=== PATIENT | female | born 1975 | race Caucasian/White ===

== ENCOUNTER 2023-03-18 12:53 | Emergency (ER) | payer OTHER, SELFPAY ==
[2023-03-18 13:17] VITALS: BP 122/70; PULSE 74; RESP 16; TEMP 36.9; O2SAT 100
--- NOTE | 2023-03-18 13:23 | ED.URI ---
HPI - URI/Sore Throat General Chief Complaint: Upper Respiratory Infection Stated Complaint: not feeling well ,body aches Source: patient and RN notes reviewed Mode of arrival: ambulatory Limitations: no limitations History of Present Illness HPI Narrative: 47-year-old female presented for complaint of sinus pressure and body aches over the past few days. She denies, shortness of breath sore throat, nausea diarrhea, fever or chills. Taking DayQuil and Tylenol Cold meds. Endorses sick contacts with similar symptoms at work. MD elicited complaint: cough Review of Systems Review of Systems: CONSTITUTIONAL: Endorses malaise, denies chills, sweats, fever EYES: Denies visual changes, redness, or discharge ENT: Reports rhinorrhea, congestion, sinus pain, denies otalgia, sore throat CARDIOVASCULAR: Denies chest pain, palpitations, edema RESPIRATORY:Denies dyspnea GASTROINTESTINAL: Denies abdominal pain, nausea, vomiting, diarrhea SKIN: Denies rash or itching MUSCULOSKELETAL: Endorses myalgia NEUROLOGIC: Denies headache PMFSH Past Medical History Medical History (Updated 03/18/23 @ 13:35 by Matilde Vela APRN) ADHD Anxiety PTSD (post-traumatic stress disorder) Surgical History Surgical History (Updated 03/18/23 @ 13:35 by Matilde Vela APRN) History of cholecystectomy History of tubal ligation Exam Narrative: GENERAL: well-appearing, nontoxic no acute distress. HEAD: Normocephalic EYES: PERRLA, conjunctivae clear ENT: Mucous membranes moist. TMs pearly palomino with dull light reflex bilaterally; no tragal tenderness. Oropharynx erythematous without lesions or exudate, tonsils chronically enlarged 2+ no drooling, no hoarseness, no trismus, uvula midline. No tripod positioning, muffled voice, soft palate or pharyngeal wall bulging NECK: Supple. No lymphadenopathy CHEST: Clear to auscultation, breath sounds equal. No wheezing, rhonchi, rales, or stridor. No respiratory distress, speaks in full sentences. HEART: Regular rate and rhythm. No murmur heard. SKIN: Warm, dry, no rash. NEURO: Alert and oriented x3. PSYCH: Normal mood and affect Course Course Emergency Course: Patient is aware of diagnosis, understands and agrees to treatment plan. Anticipatory guidance given. Patient agrees to follow-up as directed and is aware of reasons to seek care at the emergency department. Portions of this record may have been created with voice recognition software Level of Care: Express Care Visit Vital Signs Vital signs: Vital Signs Temperature 98.4 F 03/18/23 13:17 Pulse Rate 74 03/18/23 13:17 Respiratory Rate 16 03/18/23 13:17 Blood Pressure 122/70 03/18/23 13:17 Pulse Oximetry 100 03/18/23 13:17 Oxygen Delivery Room Air 03/18/23 13:17 Temperature 98.4 F 03/18/23 13:17 Pulse Rate 74 03/18/23 13:17 Respiratory Rate 16 03/18/23 13:17 Blood Pressure 122/70 03/18/23 13:17 Pulse Oximetry 100 03/18/23 13:17 Oxygen Delivery Room Air 03/18/23 13:17 reviewed MDM - URI/Sore Throat MDM Narrative Medical decision making narrative: results of negative test reviewed with patient. Discussed physical exam findings. Advised supportive measures and signs/symptoms to go to the ER. Pt is appropriate for outpt treatment and f/u. Differential Diagnosis Differential diagnosis: Likely upper respiratory infection, sinusitis and viral infection Lab Data Labs: Strep Screen Presumptive Negative *(Reference Range: Negative)* Discharge Plan Discharge Clinical Impression: Viral infection Patient Disposition: Home, Self-Care Condition: Stable Instructions: Viral Syndrome (ED) Additional Instructions: flu test negative. Rapid strep swab was negative today You will be notified in a few days if the culture comes back positive for strep, and appropriate antibiotics will be called in at that time. if symptoms
== END 2023-03-18 13:34 | disposition home or self-care (01) ==
PROVIDERS: Emergency Provider Nurse Practitioner Family
DX: B34.9 Viral infection, unspecified (principal)
CPT/HCPCS: 87081; 87804; 87880; 99213; G0463

== ENCOUNTER 2023-04-16 08:15 | Emergency (ER) | payer OTHER, SELFPAY ==
--- NOTE | 2023-04-16 08:19 | ED.SKABFB ---
HPI - Skin/Abscess/Foreign Bdy General Chief complaint: Skin/Abscess/Foreign Body Stated complaint: Rash Time Seen by Provider: 04/16/23 08:32 Source: patient and RN notes reviewed Mode of arrival: ambulatory Limitations: no limitations History of Present Illness HPI narrative: 47-year-old female presents with concern for rash on bilateral forearms, legs. 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 She reports she has been using calamine lotion and Benadryl without relief. She denies swollen lips, swollen tongue, trouble breathing. MD complaint: rash Related Data Allergies Allergy/AdvReac Type Severity Reaction Status Date / Time pregabalin [From Lyrica] Allergy Severe Swelling Verified 04/16/23 08:27 of Lip/Tongue/Throat Review of Systems Review of Systems: CONSTITUTIONAL: Denies malaise, chills, sweats, or fever. EYES: Denies redness, or discharge. ENT: Denies rhinorrhea, congestion, swollen lips, swollen tongue CARDIOVASCULAR: Denies chest pain, palpitations, or edema. RESPIRATORY: Denies cough or dyspnea. GASTROINTESTINAL: Denies abdominal pain, nausea, vomiting SKIN: Reports itchy rash on bilateral forearms and lower legs MUSCULOSKELETAL: Denies joint pain or myalgia. NEUROLOGIC: Denies headache. All systems reviewed & are unremarkable except as noted in HPI and below PMFSH Past Medical History Medical History (Updated 04/16/23 @ 08:42 by Marita Brownlee NP) ADHD Anxiety PTSD (post-traumatic stress disorder) Surgical History Surgical History (Updated 03/18/23 @ 13:35 by Matilde Vela APRN) History of cholecystectomy History of tubal ligation Comments At time of signature, agree with nursing past medical, surgical, social and family history. There is no relevant family history pertinent to the presenting complaint Exam Narrative: GENERAL: Well-appearing, well-nourished, and in no acute distress. HEAD: Normocephalic, atraumatic. EYES: PERRLA, conjunctivae clear, and EOMI. ENT: Mucous membranes moist. Oropharynx without edema, erythema or lesions. NECK: Supple. No lymphadenopathy CHEST: Clear to auscultation. No respiratory distress. HEART: Regular rate and rhythm. SKIN: Warm, dry. Patches of erythematous papules and vesicles noted to bilateral forearms, scattered papules on bilateral lower legs NEURO: Alert and oriented x3. PSYCH: Normal mood and affect Course Course Emergency Course: Patient reports she cannot take steroid tablets because of her IBS, requests an injection. Patient is aware of diagnosis, understands and agrees to treatment plan. Anticipatory guidance given. Patient agrees to follow-up as directed and is aware of reasons to seek care at the emergency department. Portions of this record may have been created with voice recognition software Level of Care: Express Care Visit Vital Signs Vital signs: Reviewed. MDM - Skin/Abscess/Foreign Bdy MDM Narrative Medical decision making narrative: Does not appear at this time to be erythema multiforme, bullous, SJS, TEN; no evidence at this time to suggest RMSF, endocarditis or Lyme disease; patient looks well, nontoxic and is tolerating oral intake; no neurologic signs or symptoms; no headache, photophobia or neck pain; afebrile; appropriate for initial outpatient treatment; discussed the importance of follow-up, patient agrees; question, viral exanthema, contact dermatitis, allergic dermatitis, eczema, urticaria. No soft palate or uvula edema, no tongue, lip edema or other mucosal involvement, no respiratory compromise, no stridor, no wheezing, no wheezing, no history of syncope, no hypotension, no nausea, vomiting, or diarrhea. Instructed patient to go to nearest ER immediately for any worsening symptoms including but not limited to: fever, spreading rash, pain, sore throat, headache, dizziness, chest pain, trouble breathing, or any symptoms concerning to the patient. Critical Care Time Critical
[2023-04-16 08:22] VITALS: BP 107/79; PULSE 74; RESP 16; TEMP 36.9; O2SAT 99
[2023-04-16] MEDS: methylPREDNISolone SOD SUCC 125 MG VIAL IM (08:48)
== END 2023-04-16 09:02 | disposition home or self-care (01) ==
PROVIDERS: Emergency Provider Nurse Practitioner
DX: L25.9 Unspecified contact dermatitis, unspecified cause (principal)
CPT/HCPCS: 96372; 99213; G0463; J2930

== ENCOUNTER 2023-05-05 17:46 | Emergency (ER) | payer OTHER, SELFPAY ==
[2023-05-05 18:04] VITALS: BP 117/81; PULSE 85; RESP 16; TEMP 36.4; O2SAT 99
--- NOTE | 2023-05-05 18:14 | ED.FEMALEGU ---
HPI - Female Genitourinary General Chief complaint: Urogenital-Female Stated complaint: pain urinating,back pain Time Seen by Provider: 05/05/23 18:14 Source: patient, RN notes reviewed and old records reviewed Mode of arrival: ambulatory Limitations: no limitations History of Present Illness HPI Narrative: 47-year-old female presents to the [facility] with left lower back pain, pain with urination since yesterday. Has had nausea without vomiting. Denies abdominal pain. Denies fevers, chest pain. Related Data Home Medications Medication Instructions Recorded Confirmed dextroamphetamine-amphetamine 20 20 mg PO BID 05/05/23 05/05/23 mg tablet diazepam 2 mg tablet 2 mg PO TID 05/05/23 05/05/23 Allergies Allergy/AdvReac Type Severity Reaction Status Date / Time pregabalin [From Lyrica] Allergy Severe Swelling Verified 05/05/23 18:03 of Lip/Tongue/Throat Review of Systems Review of Systems: All systems reviewed & are unremarkable except as noted in HPI and below Constitutional: Constitutional: Reports no additional constitutional complaints Eyes: Eyes: Reports no additional eye complaints ENT: Reports system reviewed and no additional complaints, except as documented Cardiovascular: Cardiovascular: Reports no additional cardiovascular complaints, Denies chest pain and Denies dyspnea Respiratory: Respiratory: Reports no additional respiratory complaints, Denies chest congestion, Denies cough and Denies dyspnea Gastrointestinal: Gastrointestinal: Reports no additional gastrointestinal complaints, Denies abdominal pain, Denies nausea and Denies vomiting Genitourinary: Genitourinary: Reports as per HPI Musculoskeletal: Musculoskeletal: Reports no additional musculoskeletal complaints Integumentary/Breasts: Skin/Breast: Reports system reviewed and no additional complaints, except as docu Neurologic: Reports system reviewed and no additional complaints, except as documented Psychiatric: Psychiatric: Reports no additional psychiatric complaints Allergic/Immunologic: Allergic/Immunologic: Reports no additional allergic/immunologic complaints [facility] Past Medical History Medical History ADHD Anxiety PTSD (post-traumatic stress disorder) Surgical History Surgical History History of cholecystectomy History of tubal ligation Comments At the time of my signature, I reviewed and agree with the nursing past medical, surgical, social, and family history. There is no relevant family history pertinent to the patient complaint. Exam Const: General: cooperative, healthy appearing, comfortable, no acute distress, well developed, alert and well nourished Nutritional Appearance: well nourished Orientation/consciousness: patient oriented x3 Limitations: no limitations HENMT: Head: normal to inspection Ears: hearing grossly normal bilaterally and external ears normal Face/Nose/Sinus: Normal external nose present, Normal nares present, Normal nasal mucous membranes and turbinates present, normal facial exam and face symmetric Face and sinus: normal facial exam and face symmetric Mouth: Yes lip normal and Yes moist mucous membranes Eyes: General: appearance normal, both eyes and all related structures Alignment and Position: alignment normal Periorbital: periorbital findings normal Pupils: Equal, round and reactive pupils present EOM: EOMs intact bilaterally Neck: Neck: normal visual inspection, full ROM, no lymphadenopathy and no meningeal signs Chest: Chest palpation & inspection: normal inspection of the chest Resp: Effort & Inspection: normal respiratory effort and able to speak in complete sentences Auscultation: clear to auscultation bilaterally, no crackles, no rales, no rhonchi and no wheezes Cardio: Rate: regular rate Rhythm: regular rhythm GI: GI Palp: No abdominal tenderness : G
== END 2023-05-05 18:27 | disposition home or self-care (01) ==
PROVIDERS: Emergency Provider Nurse Practitioner
DX: N39.0 Urinary tract infection, site not specified (principal); F90.9 Attention-deficit hyperactivity disorder, unspecified type; F41.9 Anxiety disorder, unspecified
CPT/HCPCS: 81003; 87086; 99213; G0463

== ENCOUNTER 2023-05-16 13:45 | Emergency (ER) | payer OTHER, SELFPAY ==
--- NOTE | ~2023-05-16 | CT_ITS ---
EXAMINATION: CT abdomen pelvis w con INDICATION: Left flank pain TECHNIQUE: Computed tomographic images of the abdomen and pelvis were obtained after the administrati on of 100 cc of Omnipaque 350 intravenous contrast. The dose-length product (DLP) was 294.97 mGy-cm. Automated exposure control and iterative reconstruction technique were employed. COMPARISON: None available FINDINGS: The lung bases are clear. The heart size is normal. The gallbladder is surgically absent. T here is mild enlargement of the common bile duct and central intrahepatic ducts which is likely due t o post cholecystectomy state. The liver, spleen, pancreas, and adrenal glands are normal. The kidneys are unremarkable. No pathologically enlarged abdominal or pelvic lymph nodes are identified. No free intraperitoneal gas or evidence of bowel obstruction. There is an antegrade the appendix is normal. Intramedullary harlan in the right femur. IMPRESSION: 1. No CT correlate for the patient's symptoms. Reviewed, dictated and finalized at location [facility]
[2023-05-16 13:47] VITALS: BP 112/71; PULSE 96; RESP 14; TEMP 36.6; O2SAT 98
[2023-05-16 14:21] LABS: Basophils Absolute Auto 0.1 K/mm3 (0.0-0.1); Basophils Percent Auto 0.5 % (0.2-1.2); Eosinophils Absolute Auto 0.4 K/mm3 (0-0.3); Eosinophils Percent Auto 3.4 % (0-4.4); Hematocrit 39.3 % (37.0-47.0); Hemoglobin 12.8 g/dL (12.0-15.0); Immature Granulocyte Absolute 0.05 K/mm3 (0.00-0.031); Immature Granulocyte Percent A 0.4 % (0-0.5); Lymphocytes Absolute Auto 3.53 K/mm3 (0.9-3.2); Lymphocytes Percent Auto 30.6 % (18.3-44.2); Mean Corpuscular HGB Conc 32.6 g/dl (32-36); Mean Corpuscular Hemoglobin 30.4 pg (26-34); Mean Corpuscular Volume 93.3 fl (80-100); Mean Platelet Volume 10.3 fl (7.4-10.4); Monocytes Absolute Auto 0.6 K/mm3 (0.1-0.6); Monocytes Percent Auto 5.3 % (2.6-8.5); Neutrophils Absolute Auto 6.9 K/mm3 (1.3-6.7); Neutrophils Percent Auto 59.8 % (45.5-73.1); Platelet Count Result 177 k/mm3 (150-375); Red Blood Count 4.21 M/mm3 (4.2-5.4); Red Cell Distribution Width 11.9 % (11.5-14.5); White Blood Count 11.5 K/mm3 (4.5-10.0)
[2023-05-16 14:25] LABS: Appearance Urine Cloudy (Clear); Bacteria Urine Rare /hpf; Bilirubin Urine Negative (Negative); Blood Urine Negative (Negative); Color Urine Yellow (Yellow); Glucose Urine UA Negative (Negative); Ketones Urine Negative (Negative); Leukocyte Esterase Ur 3+ LEU/UL (Negative); Nitrate Urine Negative (Negative); Non Pathogenic Casts 0-2; Protein Urine Negative (Negative); RBC Urine 0-2 /hpf (0-2); Specific Grav Ur 1.008 (1.001-1.035); Squamous Epithelial Cell Urine Few /hpf (Few); Urobilinogen Urine 0.2 mg/dL (<2.0); WBC Urine >100 /hpf
[2023-05-16 14:29] LABS: Add Urine Microscopic? YES
[2023-05-16 14:32] LABS: Alanine Aminotransferase 18 U/L (6-35); Albumin Level 3.8 g/dL (3.5-5.1); Alkaline Phosphatase 55 U/L (38-126); Anion Gap 8 mmol/L (8-16); Aspartate Amino Transferase 26 U/L (14-36); Bilirubin,Total 0.3 mg/dL (0.2-1.3); Blood Urea Nitrogen 10 mg/dL (7-17); Calcium 8.8 mg/dL (8.4-10.2); Carbon Dioxide 23 mmol/L (22-30); Chloride 105 mmol/L (98-107); Estimated CRCL calculation 82 ml/min; Estimated Glomerular Filt Rate > 60; Glucose 90 mg/dL (65-110); Potassium 3.9 mmol/L (3.4-5.0); Sodium 136 mmol/L (137-145)
--- NOTE | 2023-05-16 14:32 | ED.GENADULT ---
HPI - General Adult General Chief complaint: Urogenital-Female Stated complaint: kidney infection Time Seen by Provider: 05/16/23 14:07 History of Present Illness HPI narrative: Patient is a 47-year-old female who presents ER with left-sided flank pain. Radiates down into the abdomen. Associated with urinary frequency urgency dysuria. Was prescribed Bactrim without improvement. Initially evaluated on 05/05/2023 at an urgent care. Urine culture from that visit shows no growth. Patient denies any vaginal bleeding or vaginal discharge. She does not feel like she is at risk for STI. No change in other vaginal discharge. Related Data Home Medications Medication Instructions Recorded Confirmed dextroamphetamine-amphetamine 20 20 mg PO BID 05/05/23 05/05/23 mg tablet diazepam 2 mg tablet 2 mg PO TID 05/05/23 05/05/23 Allergies Allergy/AdvReac Type Severity Reaction Status Date / Time pregabalin [From Lyrica] Allergy Severe Swelling Verified 05/16/23 13:47 of Lip/Tongue/Throat Review of Systems Review of Systems: All systems reviewed & are unremarkable except as noted in HPI and below Constitutional: Constitutional: Denies chills, Denies fatigue and Denies fever(s) ENT: Denies nasal congestion and Denies sore throat Cardiovascular: Cardiovascular: Reports no additional cardiovascular complaints Respiratory: Respiratory: Reports no additional respiratory complaints Gastrointestinal: Gastrointestinal: Reports abdominal pain, Denies diarrhea, Denies nausea and Denies vomiting Genitourinary: Genitourinary: Denies abnormal vaginal bleeding, Reports nocturia, Reports dysuria, Reports flank pain and Denies vaginal discharge PMFSH Past Medical History Medical History ADHD Anxiety PTSD (post-traumatic stress disorder) Surgical History Surgical History History of cholecystectomy History of tubal ligation Exam Narrative: GENERAL: Well-appearing, well-nourished, and in no acute distress. HEAD: Normocephalic, atraumatic. ENT: Mucous membranes moist. NECK: Supple. CHEST: Clear to auscultation. No respiratory distress. HEART: Regular rate and rhythm. Normal peripheral pulses. ABDOMEN: Soft, nontender, nondistended. Mild left CVA tenderness. EXTREMITIES: Normal range of motion. No edema. SKIN: Warm, dry, no rash. NEURO: Alert and oriented x3. PSYCH: Normal mood and affect. Course Course Emergency Course: Patient informed of lab and imaging results. Feels comfortable with outpatient treatment with cefpodoxime and pain control. Vital Signs Vital signs: Vital Signs Temperature 97.8 F 05/16/23 13:47 Pulse Rate 96 05/16/23 13:47 Respiratory Rate 14 05/16/23 13:47 Blood Pressure 112/71 05/16/23 13:47 Pulse Oximetry 98 05/16/23 13:47 Temperature 97.8 F 05/16/23 13:47 Pulse Rate 66 05/16/23 16:18 Respiratory Rate 17 05/16/23 16:18 Blood Pressure 100/54 L 05/16/23 16:18 Pulse Oximetry 100 05/16/23 16:18 Medical Decision Making Vital Signs Vital Signs: Vital Signs Temperature 97.8 F 05/16/23 13:47 Pulse Rate 96 05/16/23 13:47 Respiratory Rate 14 05/16/23 13:47 Blood Pressure 112/71 05/16/23 13:47 Pulse Oximetry 98 05/16/23 13:47 Temperature 97.8 F 05/16/23 13:47 Pulse Rate 66 05/16/23 16:18 Respiratory Rate 17 05/16/23 16:18 Blood Pressure 100/54 L 05/16/23 16:18 Pulse Oximetry 100 05/16/23 16:18 Lab Data 05/16/23 14:13 05/16/23 14:13 Labs: Lab Results 05/16/23 Range/Units 14:13 WBC 11.5 H (4.5-10.0) K/mm3 RBC 4.21 (4.2-5.4) M/mm3 Hgb 12.8 (12.0-15.0) g/dL Hct 39.3 (37.0-47.0) % MCV 93.3 (80-100) fl MCH 30.4 (26-34) pg MCHC 32.6 (32-36) g/dl RDW 11.9 (11.5-14.5) % Plt Count 177 (150-375) k/mm3 MPV 10.3 (7.4-10.4) fl I
[2023-05-16] MEDS: MORPHINE SULFATE (*CRX) 4 MG/ML INJ IV PUSH ×2 (14:34→17:25)
[2023-05-16] MEDS: SODIUM CHLORIDE 0.9% IV 1,000 ML 999 ML IV CONT (14:34)
[2023-05-16] MEDS: ONDANSETRON INJ 4 MG/2 ML VIAL IV PUSH (14:34)
[2023-05-16 16:18] VITALS: BP 100/54; PULSE 66; RESP 17; O2SAT 100
[2023-05-16 18:02] VITALS: BP 117/68; PULSE 60; RESP 18; O2SAT 98
== END 2023-05-16 18:03 | disposition home or self-care (01) ==
PROVIDERS: Student in an Organized Health Care Education/Training Program; Emergency Provider Emergency Medicine
DX: N12 Tubulo-interstitial nephritis, not specified as acute or chronic (principal); F90.9 Attention-deficit hyperactivity disorder, unspecified type; F41.9 Anxiety disorder, unspecified; F43.10 Post-traumatic stress disorder, unspecified
CPT/HCPCS: 36415; 74177; 80053; 81001; 81025; 85025; 87077; 87086; 87186; 96361; 96374; 96375; 96376; 99284; J2270; J2405; J7030; Q9967

== ENCOUNTER 2023-07-11 16:03 | Emergency (ER) | payer OTHER, SELFPAY ==
--- NOTE | ~2023-07-11 | CT_ITS ---
EXAMINATION: CT abdomen pelvis w con INDICATION: Left lower quadrant pain TECHNIQUE: Computed tomographic images of the abdomen and pelvis were obtained after the administrati on of 100 cc of Omnipaque 350 intravenous contrast. The dose-length product (DLP) was 314.51 mGy-cm. Automated exposure control and iterative reconstruction technique were employed. COMPARISON: 05/16/2023 FINDINGS: Minimal dependent atelectasis is present in the lung bases. The heart size is normal. The g allbladder is surgically absent. There is mild enlargement of the common bile duct and central intrah epatic ducts which is likely due to post cholecystectomy state. The liver, spleen, pancreas, and adre nal glands are normal. The left kidney is unremarkable. There is a punctate nonobstructing stone of t he right kidney. There are diverticula of the sigmoid colon. There is wall thickening involving an ap proximately 9 cm segment of the sigmoid colon. There is fat stranding surrounding the affected segmen t of bowel. There is a small volume of pelvic ascites. No free intraperitoneal gas or perforation are identified. There our mildly dilated loops of proximal small bowel without focal transition point. T he appendix is normal. An intramedullary harlan is noted in the partially imaged right femur. IMPRESSION: 1. Findings consistent with colitis or less likely acute diverticulitis of the sigmoid colon. 2. Mildly dilated small bowel in the left upper quadrant, likely ileus. Reviewed, dictated and finalized at location F. HER MACHINE OPERATOR
[2023-07-11 16:41] VITALS: BP 116/65; PULSE 89; RESP 16; TEMP 37.1; O2SAT 100
--- NOTE | 2023-07-11 18:59 | ED.GENADULT ---
[facility] - General Adult General Chief complaint: Abdominal Pain Stated complaint: IBS, ABD PAIN TODAY Time Seen by Provider: 07/11/23 18:59 Source: patient Mode of arrival: ambulatory Limitations: no limitations History of Present Illness HPI narrative: This is a 47 year female with PMH of IBS who presents to the ED with chief complaint of lower abdominal pain beginning shortly after she woke up this morning. Patient states that initially she thought it was a flare, however she is unsure what would have caused this. She states the pain continued to worsen and she has an 8/10 pain now. Reports that it feels like her colon is going to explode. Endorses nausea. denies fevers, chills, vomiting, diarrhea, urinary problems. Related Data Home Medications Medication Instructions Recorded Confirmed dextroamphetamine-amphetamine 20 20 mg PO BID 05/05/23 05/05/23 mg tablet diazepam 2 mg tablet 2 mg PO TID 05/05/23 05/05/23 Allergies Allergy/AdvReac Type Severity Reaction Status Date / Time pregabalin [From Lyrica] Allergy Severe Swelling Verified 07/11/23 19:10 of Lip/Tongue/Throat Review of Systems Review of Systems: All systems as dictated in HPI PMFSH Past Medical History Medical History ADHD Anxiety PTSD (post-traumatic stress disorder) Surgical History Surgical History History of cholecystectomy History of tubal ligation Exam Narrative: GENERAL: Well-appearing, well-nourished, and in no acute distress. HEAD: Normocephalic, atraumatic. EYES: PERRLA and EOMI. ENT: Nares clear, no rhinorrhea or epistaxis. Mucous membranes moist. NECK: Supple. No adenopathy or masses. CHEST: No respiratory distress. Clear to auscultation. No wheezes rales or rhonchi HEART: Regular rate and rhythm. No murmur heard. Normal peripheral pulses. ABDOMEN: Diffuse tenderness, seems to be worse in the right lower and left lower quadrant. Soft, nondistended, normal active bowel sounds. Negative flank tenderness. Negative rebound or guarding. MSK: Normal range of motion. No edema. SKIN: Warm, dry, no rash. NEURO: Alert and oriented x3. No focal deficits. PSYCH: Normal mood and affect. Course Vital Signs Vital signs: Vital Signs Temperature 98.8 F 07/11/23 16:41 Pulse Rate 89 07/11/23 16:41 Respiratory Rate 16 07/11/23 16:41 Blood Pressure 116/65 07/11/23 16:41 Pulse Oximetry 100 07/11/23 16:41 Oxygen Delivery Room Air 07/11/23 16:41 Temperature 97.8 F 07/11/23 21:28 Pulse Rate 77 07/11/23 21:28 Respiratory Rate 16 07/11/23 21:28 Blood Pressure 132/74 07/11/23 21:28 Pulse Oximetry 99 07/11/23 21:28 Oxygen Delivery Room Air 07/11/23 16:41 Medical Decision Making MDM Narrative Medical decision making narrative: Medical screening exam performed by advanced practice provider in triage. the patient's care was continued by another provider in the emergency department. A separate note was written in the EMR for this visit. Vital Signs Vital Signs: Vital Signs Temperature 98.8 F 07/11/23 16:41 Pulse Rate 89 07/11/23 16:41 Respiratory Rate 16 07/11/23 16:41 Blood Pressure 116/65 07/11/23 16:41 Pulse Oximetry 100 07/11/23 16:41 Oxygen Delivery Room Air 07/11/23 16:41 Temperature 97.8 F 07/11/23 21:28 Pulse Rate 77 07/11/23 21:28 Respiratory Rate 16 07/11/23 21:28 Blood Pressure 132/74 07/11/23 21:28 Pulse Oximetry 99 07/11/23 21:28 Oxygen Delivery Room Air 07/11/23 16:41 Lab Data 07/11/23 19:12 07/11/23 19:12 Labs: Lab Results 07/11/23 Range/Units 19:12 WBC 16.8 H (4.5-10.0) K/mm3 RBC 4.26 (4.2-5.4) M/mm3 Hgb 13.0 (12.0-15.0) g/dL Hct 39.8 (37.0-47.0) % MCV 93.4 (80-100) fl MCH 30.5 (26-34) pg MCHC 32.7 (32-36) g/dl RDW 11.9 (11.5-14.
[2023-07-11] MEDS: ONDANSETRON INJ 4 MG/2 ML VIAL IV PUSH (19:10)
[2023-07-11 19:29] LABS: Basophils Percent Auto 0.2 % (0.2-1.2); Eosinophils Absolute Auto 0.1 K/mm3 (0-0.3); Eosinophils Percent Auto 0.4 % (0-4.4); Hematocrit 39.8 % (37.0-47.0); Immature Granulocyte Absolute 0.09 K/mm3 (0.00-0.031); Immature Granulocyte Percent A 0.5 % (0-0.5); Lymphocytes Absolute Auto 1.55 K/mm3 (0.9-3.2); Lymphocytes Percent Auto 9.2 % (18.3-44.2); Mean Corpuscular HGB Conc 32.7 g/dl (32-36); Mean Corpuscular Hemoglobin 30.5 pg (26-34); Mean Corpuscular Volume 93.4 fl (80-100); Mean Platelet Volume 10.4 fl (7.4-10.4); Monocytes Absolute Auto 1.2 K/mm3 (0.1-0.6); Monocytes Percent Auto 6.9 % (2.6-8.5); Neutrophils Absolute Auto 13.9 K/mm3 (1.3-6.7); Neutrophils Percent Auto 82.8 % (45.5-73.1); Platelet Count Result 159 k/mm3 (150-375); Red Blood Count 4.26 M/mm3 (4.2-5.4); Red Cell Distribution Width 11.9 % (11.5-14.5); White Blood Count 16.8 K/mm3 (4.5-10.0)
[2023-07-11 19:35] LABS: Appearance Urine Clear (Clear); Bacteria Urine 1+ /hpf; Bilirubin Urine Negative (Negative); Blood Urine Trace (Negative); Color Urine Yellow (Yellow); Glucose Urine UA Negative (Negative); Ketones Urine Negative (Negative); Leukocyte Esterase Ur Trace LEU/UL (Negative); Nitrate Urine Negative (Negative); Non Pathogenic Casts 0-2; Protein Urine Negative (Negative); RBC Urine 0-2 /hpf (0-2); Specific Grav Ur 1.018 (1.001-1.035); Squamous Epithelial Cell Urine Moderate /hpf (Few); Urobilinogen Urine 0.2 mg/dL (<2.0); WBC Urine 0-5 /hpf
[2023-07-11 19:39] LABS: Add Urine Microscopic? YES
[2023-07-11 19:47] LABS: Alanine Aminotransferase 20 U/L (6-35); Alkaline Phosphatase 56 U/L (38-126); Anion Gap 6 mmol/L (8-16); Aspartate Amino Transferase 19 U/L (14-36); Bilirubin,Total 0.9 mg/dL (0.2-1.3); Blood Urea Nitrogen 6 mg/dL (7-17); Calcium 9.1 mg/dL (8.4-10.2); Carbon Dioxide 27 mmol/L (22-30); Chloride 102 mmol/L (98-107); Estimated Glomerular Filt Rate > 60; Glucose 110 mg/dL (65-110); Lipase 22 U/L (23-300); Potassium 3.9 mmol/L (3.4-5.0); Sodium 135 mmol/L (137-145)
--- NOTE | 2023-07-11 20:10 | ED.ABDPAIN ---
HPI - Abdominal Pain General Chief Complaint: Abdominal Pain Stated Complaint: IBS, ABD PAIN TODAY Time Seen by Provider: 07/11/23 18:59 Source: patient and family Mode of arrival: ambulatory Limitations: no limitations History of Present Illness HPI narrative: 47 YEARS OLD WHITE FEMALE WITH HISTORY 5 ES CAME TO THE EMERGENCY ROOM WITH LEFT LOWER QUADRANT PAIN STARTED YESTERDAY, SHARP, SPASM, UNCOMFORTABLE, STEADY, GOT WORSE TODAY. ASSOCIATED WITH NAUSEA, PATIENT DENIES ANY FEVER, CHILLS, VOMITING, DIARRHEA, CONSTIPATION, VAGINAL BLEEDING OR DISCHARGE. PATIENT REPORTS A LOT OF STRESS LATELY, HISTORY OF IBS, CHOLECYSTECTOMY, BILATERAL TUBAL LIGATION REVERSAL, DEPRESSION, PTSD Related Data Home Medications Medication Instructions Recorded Confirmed dextroamphetamine-amphetamine 20 20 mg PO BID 05/05/23 05/05/23 mg tablet diazepam 2 mg tablet 2 mg PO TID 05/05/23 05/05/23 Allergies Allergy/AdvReac Type Severity Reaction Status Date / Time pregabalin [From Lyrica] Allergy Severe Swelling Verified 07/11/23 19:10 of Lip/Tongue/Throat Review of Systems Review of Systems: All systems reviewed & are unremarkable except as noted in HPI and below PMFSH Past Medical History Medical History ADHD Anxiety PTSD (post-traumatic stress disorder) Surgical History Surgical History History of cholecystectomy History of tubal ligation Exam Narrative: GENERAL APPEARANCE: WELL-DEVELOPED, WELL-NOURISHED SKIN: NORMAL COLOR HEAD: NORMOCEPHALIC, NONTRAUMATIC EYES: CLEAR CONJUNCTIVA ENT: OROPHARYNX NORMAL, EARS NORMAL, NOSE NORMAL NECK: SUPPLE, NONTENDER CHEST AND RESPIRATORY: AIRWAY PATENT, NO RESPIRATORY DISTRESS, NO ACCESSORY MUSCLE USE HEART: REGULAR RATE/RHYTHM ABDOMEN: SOFT, CP DIFFUSE TENDERNESS LOWER ABDOMEN MAINLY AND LEFT SIDE WITH GUARDING, NO ORGANOMEGALY, QUIET BOWEL SOUNDS VASCULAR: NORMAL PERIPHERAL PULSES, NORMAL CAPILLARY REFILL. 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, NO GROSS MOTOR DEFICIT Course Reevaluation(s) Reevaluation #1: FEELING MUCH BETTER AFTER IV DILAUDID, REGLAN Date: 07/11/23 Time: 20:24 Vital Signs Vital signs: Vital Signs Temperature 37.1 C 07/11/23 16:41 Pulse Rate 89 07/11/23 16:41 Respiratory Rate 16 07/11/23 16:41 Blood Pressure 116/65 07/11/23 16:41 Pulse Oximetry 100 07/11/23 16:41 Oxygen Delivery Room Air 07/11/23 16:41 Temperature 37.1 C 07/11/23 16:41 Pulse Rate 89 07/11/23 16:41 Respiratory Rate 16 07/11/23 16:41 Blood Pressure 116/65 07/11/23 16:41 Pulse Oximetry 100 07/11/23 16:41 Oxygen Delivery Room Air 07/11/23 16:41 MDM - Abdominal Pain MDM Narrative Medical decision making narrative: PATIENT PRESENTS WITH LEFT LOWER QUADRANT PAIN THAT STARTED YESTERDAY VITAL SIGNS ON ARRIVAL ARE UNREMARKABLE PHYSICAL EXAMINATION SHOWED DIFFUSE TENDERNESS LOWER ABDOMEN MAINLY LEFT LOWER QUADRANT, DIFFERENTIAL DIAGNOSIS INCLUDES IV IS PLACED, DIVERTICULITIS, CONSTIPATION, URINARY TRACT INFECTION, COLITIS, KIDNEY STONE. WORKUP TODAY SHOWED ELEVATED WBC 16.8, CT SCAN OF THE ABDOMEN AND PELVIS WITH IV CONTRAST SHOWED FINDINGS CONSISTENT WITH COLITIS THIS LIKELY ACUTE DIVERTICULITIS OF THE SIGMOID COLON. IN THE ED PATIENT RECEIVED 1 L OF NORMAL SALINE, 0.5 MG OF DILAUDID IV, REGLAN 10 MG IV, BENADRYL 50 MG IV, ZOFRAN 4 MG IV, WITH REMARKABLE IMPROVEMENT. PRIOR TO DISCHARGE SHE RECEIVED 1 TABLET OF LEVAQUIN AND 1 TAB OF METRONIDAZOLE. DIAGNOSIS OF COLITIS, IBS FLARE
[2023-07-11] MEDS: SODIUM CHLORIDE 0.9% IV 1,000 ML 999 ML IV CONT (20:25)
[2023-07-11] MEDS: diphenhydrAMINE HCl INJ 50 MG/ML VIAL IV PUSH (20:26)
[2023-07-11] MEDS: METOCLOPRAMIDE HCL INJ 10 MG/2 ML VIAL IV PUSH (20:27)
[2023-07-11] MEDS: HYDROmorphone HCL INJ (*CRX) 1 MG/ML SYR 0.5 MG IV PUSH (20:28)
[2023-07-11] MEDS: metroNIDAZOLE 500 MG TABLET PO (20:40)
[2023-07-11] MEDS: levoFLOXacin 750 MG TABLET PO (20:40)
[2023-07-11 21:28] VITALS: BP 132/74; PULSE 77; RESP 16; TEMP 36.6; O2SAT 99
== END 2023-07-11 21:29 | disposition home or self-care (01) ==
LOC: ANHED 20:47
PROVIDERS: Physician Assistant; Emergency Provider Emergency Medicine
DX: K52.9 Noninfective gastroenteritis and colitis, unspecified (principal); F90.9 Attention-deficit hyperactivity disorder, unspecified type; F41.9 Anxiety disorder, unspecified; F43.10 Post-traumatic stress disorder, unspecified; Z90.49 Acquired absence of other specified parts of digestive tract
CPT/HCPCS: 36415; 74177; 80053; 81001; 81025; 83690; 85025; 96361; 96374; 96375; 99284; A9270; J1170; J1200; J2405; J2765; J7030; Q9967

== ENCOUNTER 2023-08-29 14:16 | Emergency (ER) | payer OTHER, SELFPAY ==
--- NOTE | ~2023-08-29 | CT_ITS ---
EXAMINATION: CT lumbar spine wo con DATE: 08/29/2023 15:21 INDICATION: lower back pain . TECHNIQUE: Computed tomography (CT) of the lumbar spine was performed without intravenous contrast. A utomated exposure control and iterative reconstruction technique were employed. The dose-length produ ct was 254.99 mGy-cm. COMPARISON: None. FINDINGS: 5 nonrib-bearing lumbar-type vertebral bodies. Pedicles intact. Normal vertebral body align ment. Vertebral body heights preserved. Mild disc space narrowing and minimal osteophytosis at multip le levels. No severe central canal or neural foraminal narrowing. Mild multilevel facet arthropathy C T abdomen pelvis 07/11/2023. IMPRESSION: No acute fracture or traumatic malalignment in the lumbar spine. Reviewed, dictated and finalized at location K. YER
[2023-08-29 14:18] VITALS: BP 96/42; PULSE 91; RESP 20; TEMP 35.9; O2SAT 98
--- NOTE | 2023-08-29 15:08 | ED.GENADULT ---
HPI - General Adult General Chief complaint: Back Pain/Injury Stated complaint: back pain Time Seen by Provider: 08/29/23 14:56 History of Present Illness HPI narrative: 47 y/o female who presents with reports of doing yard work yesterday between [id number] and started to have lower back pain she stopped working and layed down and this morning she could barely get out of bed due to the low back pain. Reports previous back injury in the L3 with possible bulging discs - never had back surgery No saddle paraesthesia and no loss of bowel or bladder. Related Data Home Medications Medication Instructions Recorded Confirmed dextroamphetamine-amphetamine 20 20 mg PO BID 05/05/23 05/05/23 mg tablet diazepam 2 mg tablet 2 mg PO TID 05/05/23 05/05/23 Allergies Allergy/AdvReac Type Severity Reaction Status Date / Time pregabalin [From Lyrica] Allergy Severe Swelling Verified 08/29/23 14:58 of Lip/Tongue/Throat Review of Systems Review of Systems: All systems reviewed & are unremarkable except as noted in HPI and below PMFSH Past Medical History Medical History ADHD Anxiety PTSD (post-traumatic stress disorder) Surgical History Surgical History History of cholecystectomy History of tubal ligation Exam Const: General: healthy appearing and no acute distress HENMT: Head: normal to inspection Eyes: Conjunctivae: conjunctivae normal Pupils: Equal, round and reactive pupils present EOM: EOMs intact bilaterally Neck: Neck: normal visual inspection Chest: Chest palpation & inspection: normal inspection of the chest Resp: Effort & Inspection: normal respiratory effort Auscultation: clear to auscultation bilaterally Cardio: Rate: regular rate Rhythm: regular rhythm GI: GI Palp: Yes Soft to palpation Auscultation: normal bowel sounds Back/Spine/Pelvis: Back: no CVA tenderness and CVA tenderness Skin: General skin exam: normal color Rashes: no rashes Wounds: no wounds Neuro: General: patient oriented x3, moves all extremities, no meningeal signs and no focal motor deficits Cranial nerves: Yes Nystagmus not present Speech: normal speech Psych: Mental Status: mental status grossly normal Course Vital Signs Vital signs: Vital Signs Temperature 35.9 C L 08/29/23 14:18 Pulse Rate 91 08/29/23 14:18 Respiratory Rate 20 08/29/23 14:18 Blood Pressure 96/42 L 08/29/23 14:18 Pulse Oximetry 98 08/29/23 14:18 Oxygen Delivery Room Air 08/29/23 14:18 Temperature 35.9 C L 08/29/23 14:18 Pulse Rate 91 08/29/23 14:18 Respiratory Rate 20 08/29/23 14:18 Blood Pressure 96/42 L 08/29/23 14:18 Pulse Oximetry 98 08/29/23 14:18 Oxygen Delivery Room Air 08/29/23 14:18 Medical Decision Making MDM Narrative Medical decision making narrative: Wilma Lester is a 47 y/o female who presents with reports of injuring her L3 several years ago and has been stable without any issues. However, she states she was doing a lot of yard work yesterday and started to feel lower back pain she stopped rested and when she got up today the pain was worse Pain is to the lumbar lower spine sometimes radiates down the left leg No saddle paraesthesia No loss of bowel or bladder No CVA tenderness No abdominal pain NO fever/chills 5/5 strength to all extremities Plan to treat her pain and check CT of lumbar CT shows No acute fracture or traumatic malalignment in the lumbar spine. Patient re-evaluated after the [place]/ Valium and toradol and states she is still having pain Will try IM Morphine and IM Dexamethasone and d/c home wtih solumedrol pack with ortho referral . Patient agrees [facility] this plan and all questions answered. Medical Records Medical records reviewed: Yes I reviewed the external patient's medical records. Vital Signs Vital Signs: Vital Signs Tempera
[2023-08-29] MEDS: diazePAM (*CRX) 5 MG TABLET PO (15:28)
[2023-08-29] MEDS: KETOROLAC 30 MG/ML VIAL (*BKC) IM (15:28)
[2023-08-29] MEDS: HYDROcodone/acetaminophen (*CRX) 5-325 MG TABLET 1 TAB PO (15:28)
[2023-08-29] MEDS: MORPHINE SULFATE INJ (*CRX) 10 MG/ML AMP 4 MG IM (17:24)
[2023-08-29] MEDS: dexAMETHasone SOD PHOS INJ 10 MG/ML 1 ML VIAL IM (17:24)
== END 2023-08-29 17:53 | disposition home or self-care (01) ==
PROVIDERS: Emergency Provider Nurse Practitioner Family
DX: S39.012A Strain of muscle, fascia and tendon of lower back, initial encounter (principal); F90.9 Attention-deficit hyperactivity disorder, unspecified type; F41.9 Anxiety disorder, unspecified; F43.10 Post-traumatic stress disorder, unspecified; Z90.49 Acquired absence of other specified parts of digestive tract; X50.9XXA Other and unspecified overexertion or strenuous movements or postures, initial encounter; Y93.H2 Activity, gardening and landscaping
CPT/HCPCS: 72131; 96372; 99284; A9270; J1100; J1885; J2270

== ENCOUNTER 2023-11-15 08:16 | Emergency (ER) | payer OTHER, SELFPAY ==
--- NOTE | 2023-11-15 08:21 | ED.SKABFB ---
HPI - Skin/Abscess/Foreign Bdy General Chief complaint: Skin/Abscess/Foreign Body Stated complaint: rash on arms,legs Time Seen by Provider: 11/15/23 08:39 Source: patient, RN notes reviewed and old records reviewed Mode of arrival: ambulatory Limitations: no limitations History of Present Illness HPI narrative: 48-year-old female presents to the [facility] with complaints of a rash to bilateral arms and bilateral legs. Patient reports that she was gardening 8 or 9 days ago and developed this rash. Had been using some leftover triamcinolone cream as well as bathing twice a day with Klaudia dish soap. Onset (ago): day(s) (-) Treatments prior to arrival: other Related Data Home Medications Medication Instructions Recorded Confirmed dextroamphetamine-amphetamine 20 20 mg PO BID 05/05/23 11/15/23 mg tablet diazepam 2 mg tablet 2 mg PO TID 05/05/23 11/15/23 Allergies Allergy/AdvReac Type Severity Reaction Status Date / Time pregabalin [From Lyrica] Allergy Severe Swelling Verified 11/15/23 09:45 of Lip/Tongue/Throat Review of Systems Review of Systems: All systems reviewed & are unremarkable except as noted in HPI and below Constitutional: Constitutional: Reports no additional constitutional complaints Eyes: Eyes: Reports no additional eye complaints ENT: Reports system reviewed and no additional complaints, except as documented Cardiovascular: Cardiovascular: Reports no additional cardiovascular complaints, Denies chest pain and Denies dyspnea Respiratory: Respiratory: Reports no additional respiratory complaints, Denies chest congestion, Denies cough and Denies dyspnea Gastrointestinal: Gastrointestinal: Reports no additional gastrointestinal complaints, Denies abdominal pain, Denies nausea and Denies vomiting Musculoskeletal: Musculoskeletal: Reports no additional musculoskeletal complaints Integumentary/Breasts: Skin/Breast: Reports as per HPI and Reports rash Neurologic: Reports system reviewed and no additional complaints, except as documented Psychiatric: Psychiatric: Reports no additional psychiatric complaints Allergic/Immunologic: Allergic/Immunologic: Reports no additional allergic/immunologic complaints PMFSH Past Medical History Medical History ADHD Anxiety PTSD (post-traumatic stress disorder) Surgical History Surgical History History of cholecystectomy History of tubal ligation Comments At the time of my signature, I reviewed and agree with the nursing past medical, surgical, social, and family history. There is no relevant family history pertinent to the patient complaint. Exam Const: General: cooperative, healthy appearing, comfortable, no acute distress, well developed, alert and well nourished Nutritional Appearance: well nourished Orientation/consciousness: patient oriented x3 Limitations: no limitations HENMT: Head: normal to inspection Ears: hearing grossly normal bilaterally and external ears normal Face/Nose/Sinus: Normal external nose present, Normal nares present, Normal nasal mucous membranes and turbinates present, normal facial exam and face symmetric Face and sinus: normal facial exam and face symmetric Eyes: General: appearance normal, both eyes and all related structures Alignment and Position: alignment normal Periorbital: periorbital findings normal Pupils: Equal, round and reactive pupils present EOM: EOMs intact bilaterally Neck: Neck: normal visual inspection, full ROM, no lymphadenopathy and no meningeal signs Chest: Chest palpation & inspection: normal inspection of the chest Resp: Effort & Inspection: normal respiratory effort and able to speak in complete sentences Auscultation: clear to auscultation bilaterally, no crackles, no rales, no rhonchi and no wheezes Cardio: Rate: regular rate Rhythm: regular rhythm Skin: General s
[2023-11-15 08:30] VITALS: BP 129/64; PULSE 84; RESP 16; TEMP 37.2; O2SAT 99
[2023-11-15] MEDS: methylPREDNISolone SOD SUCC 125 MG VIAL IM (08:49)
== END 2023-11-15 09:10 | disposition home or self-care (01) ==
PROVIDERS: Emergency Provider Nurse Practitioner; PCP Nurse Practitioner Family
DX: L25.9 Unspecified contact dermatitis, unspecified cause (principal); F90.9 Attention-deficit hyperactivity disorder, unspecified type; F41.9 Anxiety disorder, unspecified
CPT/HCPCS: 96372; 99213; G0463; J2919

== ENCOUNTER 2023-11-22 12:48 | Observation (INO) | payer OTHER, SELFPAY ==
[2023-11-22] VITALS (9 sets, daily range): BP systolic 117–151; BP diastolic 61–80; PULSE 60–66; RESP 12–24; TEMP 36.2–36.6; O2SAT 95–100; BMI 23.1
--- NOTE | ~2023-11-22 | XR_ITS ---
EXAMINATION: XR ERCP DATE: 11/24/2023 11:43 INDICATION: Choledocholithiasis. TECHNIQUE: 4 spot fluoroscopic images of the right upper quadrant were obtained during endoscopic ret rograde cholangiopancreatography (ERCP). Fluoroscopy exposure time was 164 seconds. COMPARISON: MRCP 11/22/2023 FINDINGS: The endoscope is in the second portion the duodenum. There is contrast opacification of the common duct, which is dilated. There are stones in the common duct. IMPRESSION: 1. Choledocholithiasis. Please refer to the ERCP procedure note for additional details. Reviewed, dictated and finalized at location A.
--- NOTE | ~2023-11-22 | CT_ITS ---
CT of the Abdomen and Pelvis: Indication: Abdominal pain Technique: 2.5 mm axial scans were obtained through the abdomen and pelvis following intravenous adm inistration of 100 cc of Omnipaque 350. Dose reduction technique was used on this scan by utilizing a utomated exposure control and iterative reconstruction technique. The dose-length product (DLP) was 3 91.06 mGy-cm. COMPARISON: 07/11/2023 Findings: Scans through the lung bases are unremarkable. Intrahepatic and extrahepatic biliary dilatation are significantly progressed from prior exam. The sp jovani, pancreas, adrenals and kidneys are within normal limits. No evidence of aortic aneurysm. No l ymphadenopathy. No bowel obstruction or bowel wall thickening. There is no evidence to suggest acute appendicitis. Images through the pelvis were performed. Urinary bladder unremarkable. No definite pelvic mass seen. No ascites. Impression: Interval progression of intrahepatic and extra hepatic biliary dilatation since prior exam. This may be related to prior cholecystectomy, but correlation with LFTs is recommended. Consider MR/MRCP or ER CP to further evaluate for subtle obstructing mass, as indicated. No pancreatic ductal dilatation see n however. Reviewed, dictated and finalized at location M. Impression: Interval progression of intrahepatic and extra hepatic biliary dilatation since prior exam. This may be related to prior cholecystectomy, but correlation with LFTs is recommended. Consider MR/MRCP or ERCP to further evaluate for subtle o bstructing mass, as indicated. No pancreatic ductal dilatation seen however.
--- NOTE | ~2023-11-22 | MR_ITS ---
EXAMINATION: MR MRCP wo/w con/w 3D wo ind DATE: 11/22/2023 16:38 INDICATION: Right upper quadrant abdominal pain. TECHNIQUE: Magnetic resonance imaging (MRI) of the abdomen was performed without and with 12 mL Multi Honorio intravenous contrast. Sequences included coronal T2-weighted FS FSE, coronal T2-weighted FSE, a xial T1-weighted LAVA, coronal FS FIESTA, axial dual-echo T1-weighted SPGR, coronal lava-FLEX, sagitt al T2-weighted FSE, axial T2-weighted FSE, and axial DWI. Thick-slab T2-weighted FSE images were obta ined for magnetic resonance cholangiopancreatography (MRCP). Maximum intensity projection 3-D reconst ructions of the volumetric data were created by the technologist. Postcontrast sequences included cor onal LAVA-flex and time course of axial T1-weighted LAVA. COMPARISON: CT abdomen pelvis 11/22/2023 FINDINGS: ABDOMEN MRI: There is moderate intrahepatic biliary duct dilatation. The spleen, pancreas, adrenal gl ands, and right kidney are normal. There are cysts in left kidney measuring up to 5 mm. There are no dilated loops of bowel. There are no pathologically enlarged lymph nodes. There is no free intraperit horvath fluid. ABDOMEN MRCP: The common duct is dilated to 17 mm. There are 2 stones in the common duct measuring up to 9 mm. IMPRESSION: 1. Choledocholithiasis with moderate intrahepatic and extrahepatic biliary duct dilatation. Reviewed, dictated and finalized at location A.
[2023-11-22 13:03] LABS: Basophils Percent Auto 0.2 % (0.2-1.2); Eosinophils Absolute Auto 0.1 K/mm3 (0-0.3); Eosinophils Percent Auto 0.7 % (0-4.4); Hematocrit 43.4 % (37.0-47.0); Hemoglobin 14.3 g/dL (12.0-15.0); Immature Granulocyte Percent A 0.7 % (0-0.5); Lymphocytes Absolute Auto 1.36 K/mm3 (0.9-3.2); Lymphocytes Percent Auto 9.5 % (18.3-44.2); Mean Corpuscular HGB Conc 32.9 g/dl (32-36); Mean Corpuscular Hemoglobin 31.1 pg (26-34); Mean Corpuscular Volume 94.3 fl (80-100); Mean Platelet Volume 10.3 fl (7.4-10.4); Monocytes Absolute Auto 0.7 K/mm3 (0.1-0.6); Monocytes Percent Auto 4.9 % (2.6-8.5); Platelet Count Result 170 k/mm3 (150-375); Red Cell Distribution Width 12.8 % (11.5-14.5); White Blood Count 14.3 K/mm3 (4.5-10.0)
[2023-11-22 13:15] LABS: Alanine Aminotransferase 270 U/L (6-35); Albumin Level 4.5 g/dL (3.5-5.1); Alkaline Phosphatase 179 U/L (38-126); Anion Gap 7 mmol/L (4-12); Aspartate Amino Transferase 212 U/L (14-36); Blood Urea Nitrogen 14 mg/dL (7-17); Calcium 9.1 mg/dL (8.4-10.2); Carbon Dioxide 27 mmol/L (22-30); Chloride 104 mmol/L (98-107); Estimated CRCL calculation 71 ml/min; Estimated Glomerular Filt Rate > 60; Glucose 147 mg/dL (65-110); Lipase 49 U/L (23-300); Potassium 3.9 mmol/L (3.4-5.0); Sodium 138 mmol/L (137-145)
--- NOTE | 2023-11-22 13:51 | ED.ABDPAIN ---
HPI - Abdominal Pain General Chief Complaint: Abdominal Pain Stated Complaint: abd Time Seen by Provider: 11/22/23 13:15 History of Present Illness HPI narrative: 48-year-old female presenting to the emergency department for evaluation for increased epigastric abdominal pain. patient reports the abdominal pain did started on Tuesday. Related Data Home Medications Medication Instructions Recorded Confirmed dextroamphetamine-amphetamine 20 20 mg PO BID 05/05/23 11/22/23 mg tablet diazepam 2 mg tablet 2 mg PO TID PRN Anxiety 05/05/23 11/22/23 Allergies Allergy/AdvReac Type Severity Reaction Status Date / Time pregabalin [From Lyrica] Allergy Severe Swelling Verified 11/22/23 17:34 of Lip/Tongue/Throat surgical glue AdvReac Itching Uncoded 11/22/23 17:34 Review of Systems Review of Systems: All systems reviewed & are unremarkable except as noted in HPI and below PMFSH Past Medical History Medical History (Updated 11/22/23 @ 21:23 by Gonzalo Lester MD) Anxiety Attention deficit hyperactivity disorder Gastroesophageal reflux disease Irritable bowel syndrome Posttraumatic stress disorder Surgical History Surgical History History of cholecystectomy History of tubal ligation Family History Family History (Updated 11/22/23 @ 17:31 by Diane Hayes PA-C) Other Family history non-contributory Social History Social History (Updated 11/22/23 @ 17:32 by Diane Hayes PA-C) Social History: Surrogate medical decision maker: Mother. Code status: Full code. Smoking status: Never smoker Alcohol intake: current Alcohol use details: Rare alcohol use in moderation. Substance use: never Do You Feel Safe in your Home?: Yes Lack of Transportation: No Lack of Food: Never True Current Housing: I Have Housing Concerned About Future Housing: No Difficulty Paying Gas/Electric Bills: No Difficulty Paying for Meds: No Currently Unemployed: No Education: High School Diploma/GED Difficulty w/ Childcare or Family Care: No Additional living arrangements comments: Lives alone with her dog. She has 2 grown children. Spiritual care concerns: No Exam Narrative: APPEARANCE: Well appearing, no pain, no distress, well-nourished. HEAD: normocephalic, atraumatic. EYES: PERRLA/EOMI, conjunctivae clear. NOSE: Normal no drainage EARS:TMS clear with good light reflex. THROAT: Pharynx clear, no exudate. NECK: Supple. No adenopathy, no masses. RESPIRATORY: Airway patent, respirations nonlabored. Clear to auscultation bilaterally, no rales, rhonchi, wheezing. CARDIOVASCULAR: Regular rate and rhythm without murmurs rubs or gallops. ABDOMINAL: Right upper quadrant abdominal tenderness to palpation, normal bowel sounds MUSCULOSKELETAL: Moves all extremities. Strength/ROM intact, No edema, No calf tenderness. NEURO: Alert. Cranial nerves II through XII intact. grossly intact SKIN: Warm, dry. Normal Color Course Course Emergency Course: patient was admitted for MRCP. Case discussed with hospitalist patient was accepted for admission. GI was consulted Vital Signs Vital signs: Vital Signs Temperature 98 F 11/22/23 12:45 Pulse Rate 60 11/22/23 12:45 Respiratory Rate 14 11/22/23 12:45 Blood Pressure 129/61 11/22/23 12:45 Pulse Oximetry 100 11/22/23 12:45 Oxygen Delivery Room Air 11/22/23 12:45 Temperature 98 F 11/22/23 12:45 Pulse Rate 62 11/22/23 15:17 Respiratory Rate 12 11/22/23 15:17 Blood Pressure 117/67 11/22/23 15:17 Pulse Oximetry 97 11/22/23 20:15 Oxygen Delivery Room Air 11/22/23 20:15 MDM - Abdominal Pain MDM Narrative Medical decision making narrative: 38-year-old female presents emergency department for evaluation of right upper quadrant abdominal pain. Patient is afebrile but does have a leukocytosis of 14.3 and a stable hemoglobin.
[2023-11-22 13:59] LABS: Appearance Urine Clear (Clear); Bacteria Urine None Seen /hpf; Bilirubin Urine 1+ (Negative); Blood Urine Negative (Negative); Color Urine Dark Yellow (Yellow); Glucose Urine UA Negative (Negative); Ketones Urine 3+ mg/dL (Negative); Leukocyte Esterase Ur Trace LEU/UL (Negative); Need Manual Microscopic Reviewed; Nitrate Urine Negative (Negative); Non Pathogenic Casts 0-2; Protein Urine Trace mg/dL (Negative); Specific Grav Ur 1.026 (1.001-1.035); Squamous Epithelial Cell Urine Occasional /hpf (Few); WBC Urine 0-5 /hpf (0-3)
[2023-11-22 14:00] LABS: Add Urine Microscopic? YES
[2023-11-22] MEDS: PANTOPRAZOLE SODIUM IV 40 MG VIAL IV PUSH (14:03)
[2023-11-22] MEDS: BELLADONNA ALK/PHENOB ELIX 10 ML, MAG HYDROX/ALUMINUM HYD/SIMETH 30 ML, LIDOCAINE HCL 2... PO (14:03)
[2023-11-22] MEDS: HYDROmorphone HCL INJ (*CRX) 1 MG/ML SYR 0.5 MG IV PUSH ×2 (14:53→17:57)
--- NOTE | 2023-11-22 15:36 | PC.NURSE ---
Pt off floor at MRI at this time.
--- NOTE | 2023-11-22 15:57 | PM.IMHP ---
H&P: HPI History of Present Illness Date/Time: 11/22/23 16:00 Chief Complaint: Abdominal pain. Narrative: This Is a 48-year-old female with history of cholecystectomy, tubal ligation, gastroesophageal reflux disease, umbilical hernia, irritable bowel syndrome, and anxiety who presented to the emergency department for evaluation of abdominal pain. The patient provides the following history. She was diagnosed with GERD several years ago but her symptoms were manageable without treatment. Last month she started to have increasing symptoms of indigestion she started taking omeprazole with improvement. Over the past week or so she has developed epigastric pain radiating somewhat into the right upper quadrant. She has difficulties describing the pain but she reports that it is severe. It sounds colicky in nature. The pain is just like that she felt prior to having her cholecystectomy in 2004. When the pain is especially severe she has sweats and nausea and reports having multiple episodes of nonbloody and nonbilious emesis. She had a normal bowel movement this morning. She has not taken any medications at home aside from the omeprazole for her symptoms. She denies fever, hematemesis, bloating, belching, melena, and hematochezia. She has not noticed any yellowing of the skin or eyes. No exposure to or concerns for hepatitis. No history of ulcers. In the ED: She was afebrile on arrival with stable vital signs.? Labs were significant for a WBC count of 14.3, BUN 14, creatinine 0.70, total bilirubin 2.0, AST 212, ALT 270, alkaline phosphatase 179, lipase 49. CT of the abdomen and pelvis showed interval progression of intrahepatic and extrahepatic biliary dilatation however no pancreatic ductal dilatation was seen. Interventions thus far and a GI cocktail, hydromorphone, and pantoprazole. She is being admitted in this setting for further evaluation. Review of Systems Review of Systems: 12 systems were reviewed and are negative except for as per HPI. [facility] Past Medical History Medical History (Updated 11/22/23 @ 15:59 by Diane Hayes PA-C) Anxiety Attention deficit hyperactivity disorder Gastroesophageal reflux disease Irritable bowel syndrome Posttraumatic stress disorder Surgical History Surgical History History of cholecystectomy History of tubal ligation Family History Family History (Updated 11/22/23 @ 17:31 by Diane Hayes PA-C) Other Family history non-contributory Social History Social History (Updated 11/22/23 @ 17:32 by Diane Hayes PA-C) Social History: Surrogate medical decision maker: Mother. Code status: Full code. Smoking status: Never smoker Alcohol intake: current Alcohol use details: Rare alcohol use in moderation. Substance use: never Do You Feel Safe in your Home?: Yes Lack of Transportation: No Lack of Food: Never True Current Housing: I Have Housing Concerned About Future Housing: No Difficulty Paying Gas/Electric Bills: No Difficulty Paying for Meds: No Currently Unemployed: No Education: High School Diploma/GED Difficulty w/ Childcare or Family Care: No Additional living arrangements comments: Lives alone with her dog. She has 2 grown children. Spiritual care concerns: No Meds Home Medications and Allergies Home Medications Medication Instructions Recorded Confirmed Type triamcinolone acetonide 0.1 % 1 applic topical BID 7 days #80 04/16/23 11/15/23 Rx topical cream grams dextroamphetamine-amphetamine 20 20 mg PO BID 05/05/23 11/15/23 History mg tablet diazepam 2 mg tablet 2 mg PO TID 05/05/23 11/15/23 History Allergies Allergy/AdvReac Type Severity Reaction Status Date / Time pregabalin [From Lyrica] Allergy Severe Swelling Verified 11/15/23 09:45 of Lip/Tongue/Throat Vital Signs Vital Signs - 24 hr 11/22/23 12:45 11/22/23 12:54 11/22/23 13:46
--- NOTE | 2023-11-22 16:51 | ADMGEN ---
This patient, Wilma Lester, was admitted to Medical Room 254-01. Patient oriented to hospital policies and general routines including ID bracelet, bed and alarms, visiting hours, pain management, procedures, bathroom and other care routines, personal items, smoking policy, room service/diet, and visiting hours. Information on how to activate the Rapid Response Team has been discussed. Patient are encouraged to report perceived risks to care and to ask questions if they do not understand what they are told or what they should do.
[2023-11-22] MEDS: SODIUM CHLORIDE 0.9% IV 1,000 ML 125 ML IV CONT (16:58)
[2023-11-22] MEDS: ONDANSETRON INJ 4 MG/2 ML VIAL IV PUSH (16:58)
[2023-11-22 18:01] LABS: Hepatitis B Surface Antigen Negative (Negative)
[2023-11-22 18:07] LABS: HAV RESULT Negative (Negative); Hepatitis B Core IgM Result Negative (Negative)
[2023-11-22 18:19] LABS: Hepatitis C Virus Antibody Negative (Negative)
[2023-11-22] MEDS: HYDROmorphone HCL INJ (*CRX) 1 MG/ML SYR IV PUSH (20:37)
[2023-11-22] MEDS: PROMETHAZINE HCL 25 MG/ML AMPUL 12.5 MG IV PUSH (21:03)
[2023-11-23] MEDS: HYDROmorphone HCL INJ (*CRX) 1 MG/ML SYR IV PUSH ×3 (00:28→13:02)
[2023-11-23] MEDS: ONDANSETRON INJ 4 MG/2 ML VIAL IV PUSH ×3 (00:28→17:38)
[2023-11-23] MEDS: SODIUM CHLORIDE 0.9% IV 1,000 ML 125 ML IV CONT ×3 (00:30→17:33)
[2023-11-23 04:49] VITALS: BP 108/64; PULSE 60; RESP 18; TEMP 36.6; O2SAT 100
[2023-11-23 05:17] LABS: Basophils Percent Auto 0.2 % (0.2-1.2); Eosinophils Percent Auto 0.2 % (0-4.4); Hematocrit 39.6 % (37.0-47.0); Hemoglobin 13.2 g/dL (12.0-15.0); Immature Granulocyte Percent A 0.7 % (0-0.5); Lymphocytes Absolute Auto 1.87 K/mm3 (0.9-3.2); Lymphocytes Percent Auto 13.8 % (18.3-44.2); Mean Corpuscular HGB Conc 33.3 g/dl (32-36); Mean Corpuscular Hemoglobin 30.8 pg (26-34); Mean Corpuscular Volume 92.3 fl (80-100); Mean Platelet Volume 11.1 fl (7.4-10.4); Monocytes Percent Auto 7.7 % (2.6-8.5); Neutrophils Absolute Auto 10.4 K/mm3 (1.3-6.7); Neutrophils Percent Auto 77.4 % (45.5-73.1); Platelet Count Result 159 k/mm3 (150-375); Red Blood Count 4.29 M/mm3 (4.2-5.4); Red Cell Distribution Width 12.8 % (11.5-14.5); White Blood Count 13.5 K/mm3 (4.5-10.0)
[2023-11-23 05:25] LABS: INR 1.1; Partial Thromboplastin Time 26.8 Seconds (22.3-36.8); Prothrombin Time 14.2 Seconds (11.1-14.7)
[2023-11-23 05:36] LABS: Alanine Aminotransferase 536 U/L (6-35); Albumin Level 3.7 g/dL (3.5-5.1); Alkaline Phosphatase 172 U/L (38-126); Anion Gap 3 mmol/L (4-12); Aspartate Amino Transferase 463 U/L (14-36); Bilirubin,Total 3.5 mg/dL (0.2-1.3); Blood Urea Nitrogen 8 mg/dL (7-17); Calcium 8.5 mg/dL (8.4-10.2); Carbon Dioxide 24 mmol/L (22-30); Chloride 107 mmol/L (98-107); Estimated CRCL calculation 96 ml/min; Estimated Glomerular Filt Rate > 60; Glucose 100 mg/dL (65-110); Magnesium 2.2 mg/dL (1.6-2.3); Potassium 4.1 mmol/L (3.4-5.0); Sodium 134 mmol/L (137-145)
--- NOTE | 2023-11-23 07:50 | PM.IMPN ---
Progress Note: A&P Assessment and Plan (1) Epigastric abdominal pain: Code(s): R10.13 - Epigastric pain Status: Acute Assessment and Plan: Presented for worsening epigastric pain Liver enzymes continue to worsen MRCP showed CT scan showed increase in intrahepatic and extrahepatic biliary dilatation though no pancreatic ductal dilatation GI consulted Protonix IV for now Pain medications and antiemtics ordered (2) Intrahepatic bile duct dilation: Code(s): K83.8 - Other specified diseases of biliary tract Status: Acute Assessment and Plan: As seen on the CT GI consulted MRCP pending Await further recommendations from GI (3) Transaminitis: Code(s): R74.01 - Elevation of levels of liver transaminase levels Status: Acute Assessment and Plan: Liver enzymes continue to worsen AST 212 > 463 ALT 270 > 536 Alk Phos 179 > 172 T. Bili 2.0 > 3.5 Hep panel negative MRCP pending (4) Gastroesophageal reflux disease: Code(s): K21.9 - Gastro-esophageal reflux disease without esophagitis Status: Acute Assessment and Plan: Protonix IV added Plan Consider shock liver with robert increase of liver enzymes Time Spent With Patient Time: 49 minutes Time with patient: Greater than 35 minutes Subjective Date/time seen: 11/23/23 07:50 Interval history: 11/22/2023 This Is a 48-year-old female with history of cholecystectomy, tubal ligation, gastroesophageal reflux disease, umbilical hernia, irritable bowel syndrome, and anxiety who presented to the emergency department for evaluation of abdominal pain. The patient provides the following history. She was diagnosed with GERD several years ago but her symptoms were manageable without treatment. Last month she started to have increasing symptoms of indigestion she started taking omeprazole with improvement. Over the past week or so she has developed epigastric pain radiating somewhat into the right upper quadrant. She has difficulties describing the pain but she reports that it is severe. It sounds colicky in nature. The pain is just like that she felt prior to having her cholecystectomy in 2004. When the pain is especially severe she has sweats and nausea and reports having multiple episodes of nonbloody and nonbilious emesis. She had a normal bowel movement this morning. She has not taken any medications at home aside from the omeprazole for her symptoms. She denies fever, hematemesis, bloating, belching, melena, and hematochezia. She has not noticed any yellowing of the skin or eyes. No exposure to or concerns for hepatitis. No history of ulcers. In the ED: She was afebrile on arrival with stable vital signs.? Labs were significant for a WBC count of 14.3, BUN 14, creatinine 0.70, total bilirubin 2.0, AST 212, ALT 270, alkaline phosphatase 179, lipase 49. CT of the abdomen and pelvis showed interval progression of intrahepatic and extrahepatic biliary dilatation however no pancreatic ductal dilatation was seen. Interventions thus far and a GI cocktail, hydromorphone, and pantoprazole. She is being admitted in this setting for further evaluation. 11/23/2023 0815 Patient is lying in bed. Patient states she feels better and she did yesterday. Pain is still 5/10 she does still have nausea. She denies any chest pain, shortness a breath. She did state that she was having intermittent sweats and chills. She states her pain is epigastric to the right upper quadrant. MRCP is done just awaiting read at this time. GI is awaiting for the rate is well possibly taking the patient for an ERCP. Review of Systems Review of Systems: All systems reviewed & are unremarkable except as noted in HPI and below Exam Narrative: General: well-nourished, ill-appearing 48-year-old female, laying in bed, comfortable, NARD Neuro: awake, alert and oriented x4, speech clear,
--- NOTE | 2023-11-23 08:29 | WPDGICN ---
Assessment and Plan Assessment and plan (1) Transaminitis: Code(s): R74.01 - Elevation of levels of liver transaminase levels Status: Acute Assessment and Plan: -Noted to have elevated LFTs, R factor 10.7 more in a hepatocellular pattern but in the setting of biliary symptoms, could have retained stone or sludge. LFT have trended up since admission. Lipase normal. No concerns for pancreatitis. -Acute hepatitis panel negative -CT of the abdomen and pelvis did note interval for progression of intrahepatic and extrahepatic biliary dilation since prior to exam -MRCP pending -If retained stone or sludge, ERCP will be indicated. -Further recs pending MRCP findings -Additional liver work up labs to be completed to check for chronic diseases if needed (2) Epigastric abdominal pain: Code(s): R10.13 - Epigastric pain Status: Acute Assessment and Plan: -Pending MRCP findings -Hx of lawrence in 2004 due to sludge and stones -Continue Pantoprazole 40 mg daily -Supportive tx for pain recommended -NPO at this time. (3) Intrahepatic bile duct dilation: Code(s): K83.8 - Other specified diseases of biliary tract Status: Acute Assessment and Plan: MRCP pending (4) Gastroesophageal reflux disease: Code(s): K21.9 - Gastro-esophageal reflux disease without esophagitis Status: Acute Assessment and Plan: E[place] in 2020 [place] and dx with GERD Continue Pantoprazole 40 mg at this time. (5) History of cholecystectomy: Code(s): Z90.49 - Acquired absence of other specified parts of digestive tract Status: Acute (6) Attention deficit hyperactivity disorder: Code(s): F90.9 - Attention-deficit hyperactivity disorder, unspecified type Status: Acute (7) Anxiety: Code(s): F41.9 - Anxiety disorder, unspecified Status: Acute GI Consult Note Consult date/time: 11/23/23 08:29 HPI: Wilma Lester is a 48 year old female he seen at at the request of the hospitalist for elevated liver enzymes. She has a past medical history of GERD, irritable bowel syndrome, cholecystectomy in 2004 due to stones and sludge, tubal ligation along with reversal, and multiple orthopedic surgeries. Moved here from [place]. She states over the last several months she has been having intermittent bouts of epigastric abdominal pain with radiation to the right upper quadrant but over the last 1 week it became more severe. She states that she would get epigastric abdominal pain around 1-2 hours after eating and pain would be so severe that it would cause her to be in the ? position?. It would radiate to the right upper quadrant but no radiation to the shoulders or the back. She states if she would vomit the pain would dissipate. She would vomit up undigested food that she had ate 1-2 hours prior. She states the pain feels exactly the same prior to her cholecystectomy. She denies any typical or atypical GERD symptoms. Around 1 month ago she started taking [id number] omeprazole and states for 2 weeks and took the pain away but then stopped working. In between these episodes she relatively feels well although she does have some epigastric soreness. She denies any chronic NSAID use. She denies any history of peptic ulcer disease. She had an EGD in 2020 in [place] and that was when she was diagnosed with GERD. She does report a bowel movement every 3 days which is her baseline. Last BM a few days ago. She does state she can't belch or pass gas which is normal for her. She denies any black or bloody stools. She denies any new medications or supplements. Denies any sick or ill contacts. No history of elevated liver enzymes in the past. No family history of GI malignancies. She states her mom and 5 of her aunts have GERD and acid reflux. She has a glass of wine every so often but not frequently. Does not smoke. CT of the Abdomen and Pelvis: Indication: Abdominal pain
[2023-11-23] MEDS: PANTOPRAZOLE SODIUM IV 40 MG VIAL IV PUSH (08:44)
[2023-11-23 14:00] VITALS: BP 105/47; PULSE 72; RESP 18; TEMP 36.8; O2SAT 99
[2023-11-23] MEDS: HYDROmorphone HCL INJ (*CRX) 1 MG/ML SYR 0.5 MG IV PUSH (18:49)
[2023-11-23 19:44] VITALS: BP 105/58; PULSE 80; RESP 18; TEMP 36.8; O2SAT 100
[2023-11-23 20:00] VITALS: PULSE 80; RESP 18; O2SAT 100
[2023-11-24] VITALS (14 sets, daily range): BP systolic 101–139; BP diastolic 52–89; PULSE 70–106; RESP 18–30; TEMP 36.3–36.8; O2SAT 98–100
[2023-11-24] MEDS: PANTOPRAZOLE SODIUM IV 40 MG VIAL IV PUSH ×3 (01:47→20:36)
[2023-11-24] MEDS: SODIUM CHLORIDE 0.9% IV 1,000 ML 125 ML IV CONT ×3 (01:47→20:34)
[2023-11-24 05:38] LABS: Basophils Percent Auto 0.5 % (0.2-1.2); Eosinophils Absolute Auto 0.2 K/mm3 (0-0.3); Eosinophils Percent Auto 1.8 % (0-4.4); Hematocrit 39.5 % (37.0-47.0); Hemoglobin 12.8 g/dL (12.0-15.0); Immature Granulocyte Absolute 0.05 K/mm3 (0.00-0.031); Immature Granulocyte Percent A 0.6 % (0-0.5); Immature Platelet Fraction Pct 5.5 % (0.9-11.2); Lymphocytes Absolute Auto 1.32 K/mm3 (0.9-3.2); Mean Corpuscular HGB Conc 32.4 g/dl (32-36); Mean Corpuscular Hemoglobin 30.5 pg (26-34); Mean Platelet Volume 11.1 fl (7.4-10.4); Monocytes Absolute Auto 0.6 K/mm3 (0.1-0.6); Monocytes Percent Auto 7.4 % (2.6-8.5); Neutrophils Absolute Auto 6.1 K/mm3 (1.3-6.7); Neutrophils Percent Auto 73.7 % (45.5-73.1); Platelet Count Result 130 k/mm3 (150-375); Red Cell Distribution Width 12.2 % (11.5-14.5); White Blood Count 8.2 K/mm3 (4.5-10.0)
[2023-11-24 05:49] LABS: Alanine Aminotransferase 371 U/L (6-35); Albumin Level 3.5 g/dL (3.5-5.1); Alkaline Phosphatase 197 U/L (38-126); Anion Gap 8 mmol/L (4-12); Aspartate Amino Transferase 154 U/L (14-36); Bilirubin,Total 3.6 mg/dL (0.2-1.3); Blood Urea Nitrogen 10 mg/dL (7-17); Calcium 8.4 mg/dL (8.4-10.2); Carbon Dioxide 19 mmol/L (22-30); Chloride 107 mmol/L (98-107); Estimated CRCL calculation 81 ml/min; Estimated Glomerular Filt Rate > 60; Glucose 69 mg/dL (65-110); Potassium 3.8 mmol/L (3.4-5.0); Sodium 134 mmol/L (137-145)
[2023-11-24] MEDS: HYDROmorphone HCL INJ (*CRX) 1 MG/ML SYR 0.5 MG IV PUSH ×3 (08:36→22:57)
[2023-11-24] MEDS: ONDANSETRON INJ 4 MG/2 ML VIAL IV PUSH ×3 (08:36→20:34)
[2023-11-24] MEDS: LACTATED RINGERS 1,000 ML 150 ML IV CONT (10:24)
--- NOTE | 2023-11-24 10:41 | WPDANESEPPF ---
Anes - Initial Pre Proc Eval Procedure: Operation Date: 11/24/23 11:30 Proposed Procedures p Endoscopic Retro Cholangiopancreatogram - Andre Self MD Date/Time: 11/24/23 10:41 Surgeon: Dianna Ramos APRN Pre Op Diagnosis: Abdominal Pain Patient Data Age: 48 Gender: F Height: 1.6 m Weight: 62.8 kg Last Vital Signs Temp 97.8 F 11/24/23 10:21 Pulse 70 11/24/23 10:21 Resp 18 11/24/23 10:21 BP 111/52 L 11/24/23 10:21 Pulse Ox 100 11/24/23 10:21 O2 Del Method Room Air 11/24/23 10:21 FiO2 21 11/24/23 07:58 Allergies Allergy/AdvReac Type Severity Reaction Status Date / Time pregabalin [From Lyrica] Allergy Severe Swelling Verified 11/22/23 17:34 of Lip/Tongue/Throat surgical glue AdvReac Itching Uncoded 11/22/23 17:34 Home Medications Medication Instructions Recorded Confirmed Type dextroamphetamine-amphetamine 20 20 mg PO BID 05/05/23 11/22/23 History mg tablet diazepam 2 mg tablet 2 mg PO TID PRN Anxiety 05/05/23 11/22/23 History Laboratory Tests 11/24/23 05:01 WBC 8.2 K/mm3 (4.5-10.0) RBC 4.20 M/mm3 (4.2-5.4) Hgb 12.8 g/dL (12.0-15.0) Hct 39.5 % (37.0-47.0) MCV 94.0 fl (80-100) MCH 30.5 pg (26-34) MCHC 32.4 g/dl (32-36) RDW 12.2 % (11.5-14.5) Plt Count 130 L k/mm3 (150-375) MPV 11.1 H fl (7.4-10.4) Immature Gran % (Auto) 0.6 H % (0-0.5) Neut % (Auto) 73.7 H % (45.5-73.1) Lymph % (Auto) 16.0 L % (18.3-44.2) [place] % (Auto) 7.4 % (2.6-8.5) Eos % (Auto) 1.8 % (0-4.4) Baso % (Auto) 0.5 % (0.2-1.2) Lymph # (Auto) 1.32 K/mm3 (0.9-3.2) [place] # (Auto) 0.6 K/mm3 (0.1-0.6) Eos # (Auto) 0.2 K/mm3 (0-0.3) Baso # (Auto) 0.0 K/mm3 (0.0-0.1) Abs Immat Gran (auto) 0.05 H K/mm3 (0.00-0.031) Absolute Neuts (auto) 6.1 K/mm3 (1.3-6.7) Absolute Nucleated RBC 0.000 K/mm3 (0.0-0.012) Nucleated RBC % 0.0 % (0.0-0.2) % Immature Plt Fraction 5.5 % (0.9-11.2) Sodium 134 L mmol/L (137-145) Potassium 3.8 mmol/L (3.4-5.0) Chloride 107 mmol/L (98-107) Carbon Dioxide 19 L mmol/L (22-30) Anion Gap 8 mmol/L (4-12) BUN 10 mg/dL (7-17) Creatinine 0.60 L mg/dL (0.7-1.0) Estim Creat Clear Calc 81 ml/min Estimated GFR > 60 (59 - ) Glucose 69 mg/dL (65-110) Calcium 8.4 mg/dL (8.4-10.2) Magnesium 2.0 mg/dL (1.6-2.3) Total Bilirubin 3.6 H mg/dL (0.2-1.3) AST 154 H U/L (14-36) ALT 371 H U/L (6-35) Alkaline Phosphatase 197 H U/L (38-126) Total Protein 6.0 L g/dL (6.3-8.2) Albumin 3.5 g/dL (3.5-5.1) Patient hx anesthesia problems: none Family hx anesthesia problems: none Results Review: All pre-operative results and documents have been reviewed as part of the pre-operative evaluation. COUNTS INCLUDE 234 BEDS AT THE [facility] Past Medical History Medical History (Updated 11/23/23 @ 08:43 by Shaneka Menendez APRN) Anxiety Attention deficit hyperactivity disorder Gastroesophageal reflux disease Irritable bowel syndrome Posttraumatic stress disorder Surgical History Surgical History (Updated 11/23/23 @ 08:43 by Shaneka Menendez APRN) History of cholecystectomy History of tubal ligation Family History Family History (Updated 11/22/23 @ 17:31 by Diane Hayes PA-C) Other Family history non-contributory Social History Social History (Updated 11/22/23 @ 17:32 by Diane Hayes PA-C) Social History: Surrogate medical decision maker: Mother. Code status: Full code. Smoking status: Never smoker Alcohol intake: current Alcohol use details: Rare alcohol use in moderation. Substance use: never Do You Feel Safe in your Home?: Yes Lack of Transportation: No Lack of Food: Never True Current Housing: I Have Housing Concerned About Future Housing: No Difficulty Paying Gas/Electric Bills: No Difficulty Paying
--- NOTE | 2023-11-24 10:53 | PM.IMPN ---
Progress Note: A&P Assessment and Plan (1) Epigastric abdominal pain: Code(s): R10.13 - Epigastric pain Status: Acute Assessment and Plan: 11/24/23: Presented for worsening epigastric pain Liver enzymes continue to worsen MRCP shown choledocholithiasis with moderate intrahepatic and extrahepatic biliary duct dilatation, 2 stones in the common duct measuring up to 9 mm, common duct is dilated to [address] scan showed increase in intrahepatic and extrahepatic biliary dilatation though no pancreatic ductal dilatation GI following Continue Protonix Pain medications and antiemtics ordered (2) Intrahepatic bile duct dilation: Code(s): K83.8 - Other specified diseases of biliary tract Status: Acute Assessment and Plan: 11/24/23: Abdomen pelvis CT showed intrahepatic and extrahepatic biliary dilatation since prior exam Patient had cholecystectomy done in 2004 MRCP showing choledocholithiasis with moderate intrahepatic and extrahepatic biliary duct dilatation with 2 stones in the common duct measuring up to 9 mm, the common duct is dilated to 17 mm GI following ERCP done today and sludge and stones were removed (3) Transaminitis: Code(s): R74.01 - Elevation of levels of liver transaminase levels Status: Acute Assessment and Plan: 11/24/23: Initial AST 212, ALT 270 Now trending down AST 154, ALT 371 Alk phos 197 today Total bili up to 3.6 today Hepatic panel was negative Abdomen pelvis CT showed inter hepatic and extrahepatic biliary dilatation since prior exam. Patient had cholecystectomy done in 2004 MRCP shown choledocholithiasis with moderate intrahepatic and extrahepatic biliary duct dilatation, 2 stones in the common duct measuring up to 9 mm, the common duct is dilated to 17 mm GI following, ERCP today (4) Gastroesophageal reflux disease: Code(s): K21.9 - Gastro-esophageal reflux disease without esophagitis Status: Acute Assessment and Plan: 11/24/23: Continue Protonix Time Spent With Patient Time with patient: 25 - 35 minutes Subjective Date/time seen: 11/24/23 10:53 Interval history: 11/22/2023 This Is a 48-year-old female with history of cholecystectomy, tubal ligation, gastroesophageal reflux disease, umbilical hernia, irritable bowel syndrome, and anxiety who presented to the emergency department for evaluation of abdominal pain. The patient provides the following history. She was diagnosed with GERD several years ago but her symptoms were manageable without treatment. Last month she started to have increasing symptoms of indigestion she started taking omeprazole with improvement. Over the past week or so she has developed epigastric pain radiating somewhat into the right upper quadrant. She has difficulties describing the pain but she reports that it is severe. It sounds colicky in nature. The pain is just like that she felt prior to having her cholecystectomy in 2004. When the pain is especially severe she has sweats and nausea and reports having multiple episodes of nonbloody and nonbilious emesis. She had a normal bowel movement this morning. She has not taken any medications at home aside from the omeprazole for her symptoms. She denies fever, hematemesis, bloating, belching, melena, and hematochezia. She has not noticed any yellowing of the skin or eyes. No exposure to or concerns for hepatitis. No history of ulcers. In the ED: She was afebrile on arrival with stable vital signs.? Labs were significant for a WBC count of 14.3, BUN 14, creatinine 0.70, total bilirubin 2.0, AST 212, ALT 270, alkaline phosphatase 179, lipase 49. CT of the abdomen and pelvis showed interval progression of intrahepatic and extrahepatic biliary dilatation however no pancreatic ductal dilatation was seen. Interventions thus far and a GI cocktail, hydromorphone, and pantoprazole. She is being admitted in this setting for fu
[2023-11-24] MEDS: INDOMETHACIN 50 MG SUPP.RECT RECTAL (11:05)
[2023-11-24] MEDS: HYDROmorphone HCL INJ (*CRX) 1 MG/ML SYR IV PUSH (20:35)
[2023-11-25] MEDS: HYDROmorphone HCL INJ (*CRX) 1 MG/ML SYR IV PUSH (02:46)
[2023-11-25] MEDS: ONDANSETRON INJ 4 MG/2 ML VIAL IV PUSH (02:46)
[2023-11-25] MEDS: SODIUM CHLORIDE 0.9% IV 1,000 ML 125 ML IV CONT (04:38)
[2023-11-25 04:55] VITALS: BP 98/50; PULSE 80; RESP 18; TEMP 36.6; O2SAT 98
[2023-11-25] MEDS: PANTOPRAZOLE SODIUM IV 40 MG VIAL IV PUSH (07:33)
[2023-11-25 08:00] VITALS: O2SAT 98
--- NOTE | 2023-11-25 08:18 | PM.DS ---
DS: Admitting Diagnosis Discharge Date 11/25/23 Admitting Diagnosis Epigastric abdominal pain Intrahepatic bile duct dilation Transaminitis GERD DS: Discharge Diagnosis Discharge Diagnosis (1) Epigastric abdominal pain: Code(s): R10.13 - Epigastric pain Status: Acute (2) Intrahepatic bile duct dilation: Code(s): K83.8 - Other specified diseases of biliary tract Status: Acute (3) Transaminitis: Code(s): R74.01 - Elevation of levels of liver transaminase levels Status: Acute (4) Gastroesophageal reflux disease: Code(s): K21.9 - Gastro-esophageal reflux disease without esophagitis Status: Acute DS: Summary Hospital Course Reason for hospitalization: Epigastric abdominal pain Intrahepatic bile duct dilation Transaminitis GERD Hospital Course: 11/22/2023 This Is a 48-year-old female with history of cholecystectomy, tubal ligation, gastroesophageal reflux disease, umbilical hernia, irritable bowel syndrome, and anxiety who presented to the emergency department for evaluation of abdominal pain. The patient provides the following history. She was diagnosed with GERD several years ago but her symptoms were manageable without treatment. Last month she started to have increasing symptoms of indigestion she started taking omeprazole with improvement. Over the past week or so she has developed epigastric pain radiating somewhat into the right upper quadrant. She has difficulties describing the pain but she reports that it is severe. It sounds colicky in nature. The pain is just like that she felt prior to having her cholecystectomy in 2004. When the pain is especially severe she has sweats and nausea and reports having multiple episodes of nonbloody and nonbilious emesis. She had a normal bowel movement this morning. She has not taken any medications at home aside from the omeprazole for her symptoms. She denies fever, hematemesis, bloating, belching, melena, and hematochezia. She has not noticed any yellowing of the skin or eyes. No exposure to or concerns for hepatitis. No history of ulcers. In the ED: She was afebrile on arrival with stable vital signs.? Labs were significant for a WBC count of 14.3, BUN 14, creatinine 0.70, total bilirubin 2.0, AST 212, ALT 270, alkaline phosphatase 179, lipase 49. CT of the abdomen and pelvis showed interval progression of intrahepatic and extrahepatic biliary dilatation however no pancreatic ductal dilatation was seen. Interventions thus far and a GI cocktail, hydromorphone, and pantoprazole. She is being admitted in this setting for further evaluation. 11/23/2023 0815 Patient is lying in bed.? Patient states she feels better and she did yesterday.? Pain is still 5/10 she does still have nausea.? She denies any chest pain, shortness a breath.? She did state that she was having intermittent sweats and chills.? She states her pain is epigastric to the right upper quadrant.? MRCP is done just awaiting read at this time.? GI is awaiting for the rate is well possibly taking the patient for an ERCP. 11/24/23: Patient denies any fever, chills, vomiting, diarrhea, chest pain or shortness of breath.? Patient endorses nausea and mild abdominal tenderness after the ERCP.? Labs today showed normal white blood cell count 8.2, platelet count 130, sodium 134, bicarb 19, total bili 3.6, AST 154, ALT 371, alk-phos 197.? Hepatitis panel was negative.? Patient had a cholecystectomy in 2004 due to sludge and stones.? MRCP shown choledocholithiasis with moderate intrahepatic and extrahepatic biliary duct dilatation.? There are 2 stones in the common duct measuring up to 9 mm, the common duct is dilated to 17 mm. ERCP done today and removed sludge and stones. Patient is feeling better post procedure and tolerating clears. GI following. 11/25/23: Patient denies any new complaints today. Labs today show normal total bili at 1.1, AST down to 67, ALT down to 254, alk-phos 170, sodium 136. Patient is
[2023-11-25 08:29] LABS: Basophils Percent Auto 0.2 % (0.2-1.2); Eosinophils Absolute Auto 0.1 K/mm3 (0-0.3); Eosinophils Percent Auto 1.3 % (0-4.4); Hematocrit 35.8 % (37.0-47.0); Hemoglobin 12.1 g/dL (12.0-15.0); Immature Granulocyte Absolute 0.04 K/mm3 (0.00-0.031); Immature Granulocyte Percent A 0.4 % (0-0.5); Immature Platelet Fraction Pct 4.8 % (0.9-11.2); Lymphocytes Absolute Auto 2.25 K/mm3 (0.9-3.2); Lymphocytes Percent Auto 24.5 % (18.3-44.2); Mean Corpuscular HGB Conc 33.8 g/dl (32-36); Mean Corpuscular Hemoglobin 30.9 pg (26-34); Mean Corpuscular Volume 91.6 fl (80-100); Mean Platelet Volume 10.2 fl (7.4-10.4); Monocytes Absolute Auto 0.7 K/mm3 (0.1-0.6); Monocytes Percent Auto 7.7 % (2.6-8.5); Neutrophils Absolute Auto 6.1 K/mm3 (1.3-6.7); Neutrophils Percent Auto 65.9 % (45.5-73.1); Platelet Count Result 136 k/mm3 (150-375); Red Blood Count 3.91 M/mm3 (4.2-5.4); Red Cell Distribution Width 12.6 % (11.5-14.5); White Blood Count 9.2 K/mm3 (4.5-10.0)
[2023-11-25 08:37] LABS: Alanine Aminotransferase 254 U/L (6-35); Albumin Level 3.3 g/dL (3.5-5.1); Alkaline Phosphatase 170 U/L (38-126); Anion Gap 4 mmol/L (4-12); Aspartate Amino Transferase 67 U/L (14-36); Bilirubin,Total 1.1 mg/dL (0.2-1.3); Blood Urea Nitrogen 6 mg/dL (7-17); Calcium 8.6 mg/dL (8.4-10.2); Carbon Dioxide 26 mmol/L (22-30); Chloride 106 mmol/L (98-107); Estimated CRCL calculation 71 ml/min; Estimated Glomerular Filt Rate > 60; Glucose 104 mg/dL (65-110); Potassium 3.6 mmol/L (3.4-5.0); Sodium 136 mmol/L (137-145)
[2023-11-25 13:09] VITALS: BP 107/62; PULSE 73; RESP 16; TEMP 36.6; O2SAT 100
--- NOTE | 2023-11-25 13:32 | WPDGIPROGNO ---
Progress Note: A&P Assessment and Plan (1) Choledocholithiasis: Code(s): K80.50 - Calculus of bile duct without cholangitis or cholecystitis without obstruction Status: Acute Assessment and Plan: treated with ercp, stones removed no more pain and eating ok to go home (2) Elevated liver enzymes: Code(s): R74.8 - Abnormal levels of other serum enzymes Status: Acute Assessment and Plan: already trending down (3) Intrahepatic bile duct dilation: Code(s): K83.8 - Other specified diseases of biliary tract Status: Acute (4) RUQ pain: Code(s): R10.11 - Right upper quadrant pain Status: Acute Assessment and Plan: resolved Subjective Date/time seen: 11/25/23 13:32 Interval history: ercp yesterday with successful stone removal she is feeling much better and ready to go home Review of Systems Review of Systems: All systems reviewed & are unremarkable except as noted in HPI and below Exam Const: General: comfortable and no acute distress HENMT: Face/Nose/Sinus: Normal nares present Eyes: General: appearance normal, both eyes and all related structures Neck: Neck: no JVD Resp: Auscultation: clear to auscultation bilaterally Cardio: Rate: regular rate Rhythm: regular rhythm GI: Inspection: non-distended GI Palp: Yes Soft to palpation and No Tenderness to palpation present (GI) Auscultation: normal bowel sounds Skin: General skin exam: normal color Neuro: General: gait normal Speech: normal speech Extrem: General: normal to inspection Psych: Mental Status: mental status grossly normal Objective Data Vital Signs Vital Signs: Vital Signs - 24 hr 11/24/23 14:00 11/24/23 19:12 11/25/23 04:55 Temperature 98.0 F 97.7 F 97.8 F Pulse Rate 83 88 80 Respiratory Rate 18 18 18 Blood Pressure 118/60 121/70 98/50 L Pulse Oximetry 98 99 98 Oxygen Delivery 11/25/23 08:00 11/25/23 13:09 Temperature 97.9 F Pulse Rate 73 Respiratory Rate 16 Blood Pressure 107/62 Pulse Oximetry 98 100 Oxygen Delivery Room Air Intake/Output Intake/Output: Intake & Output 11/22/23 11/23/23 11/24/23 11/25/23 23:59 23:59 23:59 23:59 Intake Total 550 2941.7 3488.3 1600 Output Total 30 1930 700 Balance 520 1011.7 2788.3 1600 Meds/Results Medications: Active Medications Generic Name Dose Route Start Last Admin Trade Name Freq PRN Reason Stop Dose Admin Hydromorphone HCl 0.5 mg 11/22/23 16:43 11/24/23 22:57 Hydromorphone Hcl Inj (*Crx) 1 Mg/Ml Syr IV PUSH 0.5 mg Q3H PRN Administration Pain Rated 4-6 Hydromorphone HCl 1 mg 11/23/23 00:16 11/25/23 02:46 Hydromorphone Hcl Inj (*Crx) 1 Mg/Ml Syr IV PUSH 1 mg Q3H PRN Administration Pain Rated 7-10 Sodium Chloride 1,000 mls @ 125 mls/hr 11/22/23 16:00 11/25/23 04:38 Normal Saline Iv IV CONT 125 mls/hr .Q8H JOEY Administration Ondansetron HCl 4 mg 11/22/23 16:38 11/25/23 02:46 Ondansetron Inj 4 Mg/2 Ml Vial IV PUSH 4 mg Q6H PRN Administration Nausea And Vomiting Pantoprazole Sodium 40 mg 11/23/23 09:00 11/25/23 07:33 Pantoprazole Sodium Iv 40 Mg Vial IV PUSH 40 mg Q12HR JOEY Administration Radiology Results: ITS Impressions Abdomen/Pelvis CT 11/22/23 14:30 Impression: Interval progression of intrahepatic and extra hepatic biliary dilatation since prior exam. This may be related to prior cholecystectomy, but correlation with LFTs is recommended. Consider MR/MRCP or ERCP to further evaluate for subtle obstructing mass, as indicated. No pancreatic ductal dilatation seen however. MRCP 11/23/23 17:19 IMPRESSION: 1. Choledocholithiasis with moderate intrahepatic and extrahepatic biliary duct dilatation. Endo Retro Cholangiopancreatogram 11/24/23 12:03 IMPRESSION: 1. Choledocholithiasis. Please refer to the ERCP procedure note for additional details. Labs Labs: Laboratory Results - l
== END 2023-11-25 13:55 | disposition home or self-care (01) ==
LOC: ANHED 13:39 → ANH2MED 21:23
PROVIDERS: Internal Medicine Gastroenterology; Nurse Practitioner; Physician Assistant; Admitting Provider Family Medicine; Emergency Provider Emergency Medicine; PCP Nurse Practitioner Family; Visit Provider Nurse Practitioner Acute Care
PROC: (CPT 43260; principal; 2023-11-24 11:30)
DX: K80.50 Calculus of bile duct without cholangitis or cholecystitis without obstruction (principal); K83.8 Other specified diseases of biliary tract; R74.01 Elevation of levels of liver transaminase levels; F41.9 Anxiety disorder, unspecified; K21.9 Gastro-esophageal reflux disease without esophagitis; K58.9 Irritable bowel syndrome, unspecified; F43.10 Post-traumatic stress disorder, unspecified; F90.9 Attention-deficit hyperactivity disorder, unspecified type; Z90.49 Acquired absence of other specified parts of digestive tract
CPT/HCPCS: 43262; 43264; 36415; 74177; 74183; 74329; 76376; 80053; 80074; 81001; 81025; 83690; 83735; 85025; 85055; 85610; 85730; 96374; 96375; 96376; 99285; A9270; A9577; C9113; G0378; J0330; J1100; J1170; J2405; J2550; J2704; J7030; J7120; Q9966; Q9967

== ENCOUNTER 2025-03-17 11:00 | Emergency (ER) | payer BC, SELFPAY ==
[2025-03-17 11:12] VITALS: BP 121/63; PULSE 108; RESP 20; TEMP 37.2; O2SAT 99
--- NOTE | 2025-03-17 11:26 | ED.GENADULT ---
HPI - General Adult General Chief complaint: Skin/Abscess/Foreign Body Stated complaint: irritation on abdomen Time Seen by Provider: 03/17/25 11:27 Source: patient Mode of arrival: ambulatory Limitations: no limitations History of Present Illness HPI narrative: 49-year-old female patient presents to the [facility] with complaints of a rash to the abdomen. Patient was diagnosed with scabies on February 08 was prescribed permethrin for 1st round treatment and then was prescribed ivermectin oral medication on February 28 and had a 2nd dose done on March 07. Patient states that the majority of the rash has improved but continues to have a rash to the abdomen. Patient states that they have been cleaning the area that she lives in vacuuming and cleaning daily. Patient states it is very itchy but denies fevers body aches or chills. Patient states she is having bowel movements daily. Related Data Home Medications ?Medication ?Instructions ?Recorded ?Confirmed ?Last Taken ?Type dextroamphetamine-amphetamine 20 20 mg PO BID 05/05/23 11/22/23 Unknown History mg tablet diazepam 2 mg tablet 2 mg PO TID PRN Anxiety 05/05/23 11/22/23 Unknown History Allergies Allergy/AdvReac Type Severity Reaction Status Date / Time pregabalin (From Lyrica) Allergy Severe Swelling Verified 03/17/25 11:22 of Lip/Tongue/Throat surgical glue AdvReac Itching Uncoded 11/22/23 17:34 Review of Systems Review of Systems: CONSTITUTIONAL: Denies fever, chills, or sweats. EYES: Denies visual changes, redness, or discharge. ENT: Denies rhinorrhea, congestion, sore throat, or otalgia. CARDIOVASCULAR: Denies chest pain, palpitations, or edema. RESPIRATORY: Denies cough or dyspnea. GASTROINTESTINAL: Denies abdominal pain, nausea, vomiting, or diarrhea. GENITOURINARY: Denies dysuria or hematuria. SKIN: Positive rash with itching to abdomen area. MUSCULOSKELETAL: Denies back pain, joint pain, or myalgia. NEUROLOGIC: Denies headache, numbness, or weakness. PSYCHIATRIC: Denies anxiety or depression. [facility] Past Medical History Medical History RUQ pain Elevated liver enzymes Choledocholithiasis Attention deficit hyperactivity disorder Gastroesophageal reflux disease Irritable bowel syndrome Posttraumatic stress disorder Anxiety Surgical History Surgical History History of tubal ligation History of cholecystectomy Family History Family History Other Family history non-contributory Social History Social History Social History: Surrogate medical decision maker: Mother. Code status: Full code. Smoking status: Never smoker Alcohol intake: current Alcohol use details: Rare alcohol use in moderation. Substance use: never Do You Feel Safe in your Home?: Yes Lack of Transportation: No Lack of Food: Never True Current Housing: I Have Housing Concerned About Future Housing: No Difficulty Paying Gas/Electric Bills: No Difficulty Paying for Meds: No Currently Unemployed: No Education: High School Diploma/GED Difficulty w/ Childcare or Family Care: No Additional living arrangements comments: Lives alone with her dog. She has 2 grown children. Spiritual care concerns: No Comments At the time of my signature I agree with nursing past medical history, surgical, social, and family history. There is no relevant family history pertinent to the presenting complaint. Exam Narrative: GENERAL: Well-appearing, well-nourished, and in no acute distress. HEAD: Normocephalic, atraumatic. EYES: PERRLA and EOMI. ENT: Nares clear, no rhinorrhea or epistaxis. Mucous membranes moist. NECK: Supple. No lymphadenopathy CHEST: Clear to auscultation. No respiratory distress. HEART: Regular rate and rhythm. No murmur heard. Normal peripheral pulses. ABDOMEN: Soft, nontender, nondistended, normal active bowel sounds. EXTREMITIES: Normal range of motion. No edema. SKIN: Warm, dry, patient has rash noted to the area around the belly button. The rash does appear to be in linear line areas no raised areas no open wounds or discharge noted. NEURO: No focal deficits. Alert and oriented x3. Course Course Level of Care: Express Care Visit Vital Signs Vital signs: Vital Signs Temperature 37.2 C 03/17/25 11:12 Pulse Rate 108 H 03/17/25 11:12 Respiratory Rate 20 03/17/25 11:12 Blood Pressure 121/63 03/17/25 11:12 Pulse Oximetry 99 03/17/25 11:12 Oxygen Delivery Room Air 03/17/25 11:12 Temperature 37.2 C 03/17/25 11:12 Pulse Rate 108 H 03/17/25 11:12 Respiratory Rate 03/17/25 11:12 Blood Pressure 121/63 03/17/25 11:12 Pulse Oximetry 99 03/17/25 11:12 Oxygen Delivery Room Air 03/17/25 11:12 Vital signs reviewed. Medical Decision Making MDM Narrative Medical decision making narrative: Discussed with patient we can do another round of the permethcin to the abdomen area. Discussed with her that there is a off. And sometimes she still may have a rash even though no live scabies are there. Discussed with patient that this does take usually a couple rounds of treatment and couple months to fully go away. Discussed with patient to go ahead and continue to follow-up with her primary doctor which she does have an appointment on March 26 and they can talk about possibly doing another round of ivermectin however without knowing what her liver labs look like I am hesitant about doing another round since she just had 2 rounds 10 days ago. Discussed with patient she can also take oral antihistamines help with the itching. Patient verbalized understanding denies and denies any other questions or concerns at this time. Differential Diagnosis Differential Diagnosis: Differential diagnosis: Contact dermatitis, poison bassam, poison sumac, psoriasis, eczema, allergic reaction, drug reaction, scabies, tinea syphilis, lung disease, viral exanthema, pityriasis, erythema multiforme. Vital Signs Vital Signs: Vital Signs Temperature 37.2 C 03/17/25 11:12 Pulse Rate 108 H 03/17/25 11:12 Respiratory Rate 03/17/25 11:12 Blood Pressure 121/63 03/17/25 11:12 Pulse Oximetry 99 03/17/25 11:12 Oxygen Delivery Room Air 03/17/25 11:12 Temperature 37.2 C 03/17/25 11:12 Pulse Rate 108 H 03/17/25 11:12 Respiratory Rate 03/17/25 11:12 Blood Pressure 121/63 03/17/25 11:12 Pulse Oximetry 99 03/17/25 11:12 Oxygen Delivery Room Air 03/17/25 11:12 Critical Care Time Critical Care Time Critical Care Time: No Discharge Plan Discharge Clinical Impression: Hx of scabies Patient Disposition: Home Condition: Stable Instructions: Antibiotic Form, Scabies (ED) Additional Instructions: Scabies is a very itchy rash caused by tiny bugs called mites. These tiny mites dig just under the skin and lay eggs. An allergic reaction to the mites causes the itching. It can take 4 to 6 weeks after a person gets scabies for the allergic reaction to start. Scabies is usually spread by close contact with another person who has scabies. Sometimes scabies is spread through shared towels, clothes, and bedding. Scabies can be treated with medicine if you follow directions carefully. Usually everyone in the house needs to be treated. The medicine kills the mites within a day. But the itching commonly lasts for 2 to 4 weeks after treatment because the allergic reaction continues. Follow-up care is a grimaldo part of your treatment and safety.?Be sure to make and go to all appointments, and call your doctor or nurse advice line (811?in most provinces and territories) if you are having problems. It's also a good idea to know your test results and keep a list of the medicines you take. How can you care for yourself at home? Use the medicine your doctor recommends or prescribes. Follow your doctor's instructions carefully. Two treatments may be needed to cure scabies.Wash all clothes, bedding, and towels that you and others in your household used in the 3 days before you started treatment. Use hot water, and use the hot cycle in the dryer. Another option is to dry-clean these items. Or seal them (including any stuffed animals) in a plastic bag for 3 days.On the day you start treatment, vacuum the room or rooms used by anyone who had scabies.An oral antihistamine may help stop itching. You also can use a non-prescription anti-itch cream. Read and follow all instructions on the label.Do not have physical contact with other people or let anyone use your personal items until you have finished treatment. Do not use other people's personal items until your treatment is done. Tell people with whom you have sexual or close contact that they will likely need treatment. When should you call for help? Watch closely for changes in your health, and be sure to contact your doctor or nurse advice line if: You have signs of a worsening infection, such as: Increased pain, swelling, warmth, or redness. Pus draining from a bite area. A fever.You do not get better as expected. Patient Language: Kinyarwanda Prescriptions: New permethrin 5 % cream 1 applic topical Q14D Qty: 60 0RF Rx Instructions: apply second treatment 14 days after first treatment if live lice remain No Action diazepam 2 mg tablet 2 mg PO TID PRN (Reason: Anxiety) dextroamphetamine-amphetamine 20 mg tablet 20 mg PO BID Follow-up/Referrals: Ramos,Lisy Jackson NP [Primary Care Provider, Unknown] Time of Disposition: 11:42
== END 2025-03-17 11:45 | disposition home or self-care (01) ==
PROVIDERS: Emergency Provider Nurse Practitioner Family; PCP Nurse Practitioner Family
DX: B86 Scabies (principal); K21.9 Gastro-esophageal reflux disease without esophagitis; F90.9 Attention-deficit hyperactivity disorder, unspecified type
CPT/HCPCS: 99213; G0463

== ENCOUNTER 2025-04-07 19:23 | Emergency (ER) | payer BC, SELFPAY ==
--- NOTE | ~2025-04-07 | XR_ITS ---
EXAMINATION: XR foot LT min 3V, 04/07/2025 19:38 CDT HISTORY: LT 3rd/4th toe pain for 2 days, jammed on wall COMPARISON: No comparisons available. Findings: No acute fracture or malalignment. No significant degenerative changes. Soft tissues unremarkable. Impression: No acute fracture or malalignment. Reviewed, dictated and finalized at location P. Impression: No acute fracture or malalignment.
--- NOTE | 2025-04-07 19:25 | ED_ITS ---
HPI - Extremity Injury (Lower) General Chief Complaint: Extremity Injury, Lower Stated Complaint: left toe injury Time Seen by Provider: 04/07/25 19:24 Source: patient Mode of arrival: ambulatory Limitations: no limitations History of Present Illness HPI Narrative: Patient is a 41-year-old female who presents with left 3-5 toe pain after injury 2 days ago. States she jammed them into the wall. Patient has been ambulating on it without assistance since. Patient reports previous injury a few months ago to the same location. Related Data Home Medications ?Medication ?Instructions ?Recorded ?Confirmed ?Last Taken ?Type dextroamphetamine-amphetamine 30 04/07/25 Unknown Hi story mg tablet Allergies Allergy/AdvReac Type Severity Reaction Status Date / Time pregabalin (From LyricNanoference) Allergy Severe Swelling Verified 04/07/25 19:41 of Lip/Tongue/Throat surgical glue AdvReac Itching Uncoded 11/22/23 17:34 Review of Systems Review of Systems: All systems reviewed & are unremarkable except as noted in HPI and below Constitutional: Constitutional: Denies body ache(s), Denies chills, Denies fatigue, Denies fever(s), Denies headache(s), Denies malaise and Denies weakness Eyes: Eyes: Denies blurry vision, Denies irritation and Denies loss of vision ENT: Denies otalgia, Denies headache(s), Denies nasal discharge, Denies sinus pain and Denies sore throat Cardiovascular: Cardiovascular: Denies chest pain, Denies irregular heart rhythm and Denies dyspnea Respiratory: Respiratory: Denies dyspnea Gastrointestinal: Gastrointestinal: Denies abdominal pain, Denies melena, Denies hematochezia, Denies diarrhea, Denies nausea and Denies vomiting Musculoskeletal: Musculoskeletal: Denies back pain, Denies myalgias and Reports arthralgias Integumentary/Breasts: Skin/Breast: Denies pruritus and Denies rash Neurologic: Denies headache(s), Denies loss of vision and Denies weakness Psychiatric: Psychiatric: Reports no additional psychiatric complaints Endocrine: Endocrine: Denies fatigue PMFSH Past Medical History Medical History RUQ pain Elevated liver enzymes Choledocholithiasis Attention deficit hyperactivity disorder Gastroesophageal reflux disease Irritable bowel syndrome Posttraumatic stress disorder Anxiety Surgical History Surgical History History of tubal ligation History of cholecystectomy Family History Family History Other Family history non-contributory Social History Social History Social History: Surrogate medical decision maker: Mother. Code status: Full code. Smoking status: Never smoker Alcohol intake: current Alcohol use details: Rare alcohol use in moderation. Substance use: never Do You Feel Safe in your Home?: Yes Lack of Transportation: No Lack of Food: Never True Current Housing: I Have Housing Concerned About Future Housing: No Difficulty Paying Gas/Electric Bills: No Difficulty Paying for Meds: No Currently Unemployed: No Education: High School Diploma/GED Difficulty w/ Childcare or Family Care: No Additional living arrangements comments: Lives alone with her dog. She has 2 grown children. Spiritual care concerns: No Comments At time of signature, agree with nursing past medical, surgical, social and family history. There is no relevant family history pertinent to the presenting complaint. Exam Const: General: cooperative, healthy appearing, comfortable, no acute distress and well nourished Nutritional Appearance: well nourished Orientation/consciousness: patient oriented x3 Limitations: no limitations HENMT: Head: normal to inspection, normocephalic and atraumatic Ears: hearing grossly normal bilaterally and external ears normal Face/Nose/Sinus: Normal external nose present, normal facial exam and face symmetric Face and sinus: normal facial exam and face symmetric Mouth: Yes lip normal Eyes: General: appearance normal, both eyes and all related structures Alignment and Position: alignment normal and position normal Periorbital: periorbital findings normal Eyelids: eyelids normal Pupils: Equal, round and reactive pupils present EOM: EOMs intact bilaterally Neck: Neck: normal visual inspection, full ROM and supple Chest: Chest palpation & inspection: normal inspection of the chest Resp: Effort & Inspection: normal respiratory effort and able to speak in complete sentences Auscultation: clear to auscultation bilaterally Cardio: Rate: regular rate Rhythm: regular rhythm Heart sounds: S1 normal heart sound present and S2 normal heart sound present GI: Inspection: normal to inspection Skin: General skin exam: normal color and no rashes or lesions noted Neuro: General: patient oriented x3 and moves all extremities Cranial nerves: Yes Equal, round and reactive pupils present Speech: normal speech Gait exam (Neuro): Normal gait present Extrem: General: normal to inspection, full ROM and no edema Left lower extremity: ankle Details: normal to inspection and normal ROM; no tenderness and no swelling and foot Details: normal capillary refill, normal to inspection, te nderness Location: of another digit Location: the 3rd digit, the 4th digit and the 5th digit, toes with normal ROM, ecchymosis 3rd toe , 4th toe , vascular exam Details: dorsalis pedis pulse present and normal capillary refill and tendon exam active flexion normal and active extension normal of all toes Psych: Appearance: grossly normal and well kempt Mental Status: mental status grossly normal Speech and movement: Normal speech and movement present Affect: normal affect Attitude: cooperative Thought process: Normal thought process present Course Course Emergency Course: Patient is aware of diagnosis, understands and agrees to treatment plan. Anticipatory guidance given. Patient agrees to follow-up as directed and is aware of reasons to seek care at the emergency department. Portions of this record may have been created with voice recognition software Level of Care: Express Care Visit Vital Signs Vital signs: Vital Signs Temperature 36.8 C 04/07/25 19:36 Pulse Rate 96 04/07/25 19:36 Respiratory Rate 18 04/07/25 19:36 Blood Pressure 131/70 04/07/25 19:36 Pulse Oximetry 100 04/07/25 19:36 Oxygen Delivery Room Air 04/07/25 19:36 Temperature 36.8 C 04/07/25 19:36 Pulse Rate 96 04/07/25 19:36 Respiratory Rate 18 04/07/25 19:36 Blood Pressure 131/70 04/07/25 19:36 Pulse Oximetry 100 04/07/25 19:36 Oxygen Delivery Room Air 04/07/25 19:36 Reviewed MDM - Extremity Injury (Lower) MDM Narrative Medical decision making narrative: Patient requesting postop shoe since she lost her 1 from her previous surgery. 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 States she is in need of a work note since she missed last 2 days a work Pt well hydrated appearing, in no respiratory distress, hemodynamically stable. Recommend supportive care. The patient is stable at time of discharge the clinical impression was discussed and the patient was given the opportunity to ask questions, which were addressed as completely as possible given the information available at present. Anticipatory guidance and return to care precautions were discussed and the importance of primary care follow-up was stressed and encouraged. The patient voiced understanding of the plan, indications to return, and the need for follow-up. Exam findings show no acute concerns or changes Patient is appropriate for outpatient treatment and follow-up. Differential Diagnosis Differential diagnosis: Likely other (Toe sprain, toe fracture, gout) Medical Records Attestation: I reviewed the patient's medical records. Imaging Data Radiologist's impression: EXAMINATION: XR foot LT min 3V, 04/07/2025 19:38 CDT HISTORY: LT 3rd/4th toe pain for 2 days, jammed on wall COMPARISON: No comparisons available. Findings: No acute fracture or malalignment. No significant degenerative changes. Soft tissues unremarkable. Impression: No acute fracture or malalignment. Reviewed, dictated and finalized at location P. Discharge Plan Discharge Clinical Impression: Pain in toe Patient Disposition: Home Condition: Stable Instructions: Foot Sprain (ED) Additional Instructions: Minimize activities that aggravate the condition The RICE protocol. Follow the RICE protocol as soon as possible after your injury: Rest your foot by not walking on it. Ice should be immediately applied to keep the swelling down. It can be used for 20 to 30 minutes, three or four times daily. Do not apply ice directly to your skin. Compression dressings, bandages or sy-wraps will immobilize and support your injured foot. Elevate your foot above the level of your heart as often as possible during the first 48 hours. Medication: Nonsteroidal anti-inflammatory drugs (NSAIDs) such as ibuprofen and naproxen can help control pain and swelling. Because they improve function by both reducing swelling and controlling pain, they are a better option for mild sprains than narcotic pain medicines. Please schedule a follow-up visit with your personal physician for further evaluation and treatment within 1week OR If your symptoms persist, change or worsen significantly before you can contact your personal physician then please, without delay, go to the emergency department for further evaluation. Patient Language: Czech Prescriptions: No Action dextroamphetamine-amphetamine 30 mg tablet Follow-up/Referrals: Ramos,Lisy Jackson, [employer] [Primary Care Provider, Unknown] - 3 Days Stand Alone Forms: Work/School Release IP Time of Disposition: 19:55
[2025-04-07 19:36] VITALS: BP 131/70; PULSE 96; RESP 18; TEMP 36.8; O2SAT 100
== END 2025-04-07 20:03 | disposition home or self-care (01) ==
PROVIDERS: Emergency Provider Nurse Practitioner Family; PCP Nurse Practitioner Family
DX: M79.675 Pain in left toe(s) (principal); K21.9 Gastro-esophageal reflux disease without esophagitis; F90.9 Attention-deficit hyperactivity disorder, unspecified type
CPT/HCPCS: 73630; 99213; G0463